=== PATIENT | male | born 1945 | race Caucasian/White ===

== ENCOUNTER 2016-03-08 10:27 | Outpatient (CLI) | payer MEDICARE | END 2016-03-08 10:28 | disposition home or self-care (01) | DX: G47.33 Obstructive sleep apnea (adult) (pediatric) (principal) | CPT/HCPCS: 99213; G0463 ==

== ENCOUNTER 2016-04-20 07:33 | Outpatient (CLI) | payer MEDICARE | END 2016-04-20 07:34 | disposition home or self-care (01) | DX: E11.65 Type 2 diabetes mellitus with hyperglycemia (principal) ==

== ENCOUNTER 2016-07-03 06:49 | Emergency (ER) | payer MEDICARE ==
--- NOTE | 2016-07-03 07:37 | XRAY Preliminary Report ---
Exam: XR Hip w/Pelvis 2-3V RT IMPRESSION: No acute bony abnormality. [facility] SITE ID: [id number]
[2016-07-03] MEDS ORDERED: DEXAMETHASONE 10 MG/ML VIAL IM STA (07:39)
--- NOTE | 2016-07-03 07:39 | XRAY Report ---
EXAM: RIGHT HIP AND PELVIS RADIOGRAPHY EXAM DATE: 07/03/2016 07:28 AM. HISTORY: Pain. COMPARISONS: None. TECHNIQUE: 1 view of the pelvis and 1 view of the hip. FINDINGS: Bones: Normal. No fracture or bone lesion. Joints: The bilateral hip, pubis symphysis, and sacroiliac joints are preserved. Soft Tissues: Left hemipelvis phlebolith. No soft tissue swelling. IMPRESSION: No acute bony abnormality. [facility] Referring Provider Line: [phone] SITE ID: [id number]
[2016-07-03] MEDS ORDERED: DEXAMETHASONE 10 MG/ML VIAL ONE ×2 (07:55→08:01)
[2016-07-03] MEDS ORDERED: CHERRY SYRUP 10 ML UDC PO ONE (07:55)
--- NOTE | 2016-07-03 08:11 | ED Physician Documentation ---
History of Present Illness - Stated complaint Stated Complaint: R HIP PAIN - Chief complaint Chief Complaint: General - Additonal information Additional information: hx from pt hx HNP several months of electric like worsening severe radicular pain from R hip to foot no abd pain no numbness no weakness no incont no saddle anesthesia has not sought care for same yet but has an appt coming up in a few more weeks Review of Systems Constitutional: denies: Fever, Chills Cardiac: denies: Chest pain / pressure Respiratory: denies: Dyspnea GI: denies: Abdominal Pain Musculoskeletal: reports: Back pain, Extremity pain Neurologic: denies: Focal weakness, Numbness Immunocompromised: denies: Immunocompromised PD PAST MEDICAL HISTORY - Past Medical History Cardiovascular: Hypertension Respiratory: Sleep apnea Endocrine/Autoimmune: Type 2 diabetes GI: GERD, Ulcers, Diverticulitis : None HEENT: None Psych: None Musculoskeletal: Chronic back pain Derm: None - Past Surgical History Past Surgical History: Yes General: Appendectomy, Bowel surgery, Gastric surgery, Colonoscopy HEENT: Tonsil/Adenoidectomy - Present Medications Home Medications: Ambulatory Orders Medication Instructions Recorded Confirmed Alprazolam 0.5 - 1 mg PO DAILY PRN 04/23/14 06/12/15 Aspirin [Aspirin EC] 81 mg PO DAILY 04/23/14 06/11/15 Hydrochlorothiazide 37.5 mg PO DAILY 04/23/14 06/12/15 Hydrocodone/Acetaminophen 1 each PO BID PRN 04/23/14 06/12/15 [Hydrocodon-Acetaminophen 5-325] Insulin Lispro [Humalog] 25 units SQ BID 04/23/14 06/11/15 Insulin NPH Human Isophane 45 units SQ DAILY 04/23/14 06/11/15 [Humulin N] Lisinopril 40 mg PO DAILY 04/23/14 06/11/15 Omeprazole 20 mg PO BID 04/23/14 06/11/15 Aspirin [Aspir-Low] 1 tab ORAL DAILY 05/22/15 06/12/15 Methocarbamol 1 tab ORAL TID PRN 05/22/15 06/11/15 Naproxen [Naprosyn] 500 mg ORAL BID PRN 05/22/15 06/11/15 predniSONE [Deltasone] 20 mg PO [id number] #21 tab 07/03/16 - Allergies Allergies/Adverse Reactions: Allergies Allergy/AdvReac Type Severity Reaction Status Date / Time morphine AdvReac Hallucinati Verified 07/03/16 07:00 ons - Social History Does the pt smoke?: No Smoking Status: Never smoker Does the pt drink ETOH?: No Does the pt have substance abuse?: No - Immunizations Immunizations: TDAP >10years/unknown - POLST Patient has POLST: No PD ED PE NORMAL - Vitals Vital signs reviewed: Yes - Cardiac Cardiac: RRR - Respiratory Respiratory: No respiratory distress, Clear bilaterally - Abdomen Abdomen: Soft, Non tender, Other (no pulsatile mass) - Derm Derm: Normal color - Extremities Extremities: No deformity - Neuro Neuro: Alert and oriented X 3, Other (foot dorsi plantar great toe ext knee ext hip flexion all 5/5, nl sensation, patellar DTR 2/4 no clonus, neg SLR though clearly describes radicular pain intermittantly) Results - Vitals Vitals: Vital Signs - 24 hr 07/03/16 06:57 Temperature 36.8 C Heart Rate 80 Respiratory 17 Rate Blood Pressure 171/73 H O2 Saturation 96 Oxygen O2 Source Room air - Rads (name of study) hip Radiology: See rad report (neg) Departure - Departure Disposition: 01 Home, Self Care Clinical Impression: Sciatic leg pain Condition: Good Instructions: ED Sciatica Follow-Up: Sheng Santamaria MD [Primary Care Provider] - Prescriptions: predniSONE [Deltasone] 20 mg PO [id number] #21 tab Comments: The steroids should relieve the nerve inflammation and ease the pain. But they will also bump up your blood sugars so please monitor carefully Continue your hydrocodone if needed.Follow up with your specialist as planned And please see you PMD about your blood pressure - it was high today
[2016-07-03 08:24] VITALS: BP 173/74
== END 2016-07-03 08:23 | disposition home or self-care (01) ==
LOC: ED 06:49
DX: M54.41 Lumbago with sciatica, right side (principal); I10 Essential (primary) hypertension; G47.30 Sleep apnea, unspecified; E11.9 Type 2 diabetes mellitus without complications; Z79.4 Long term (current) use of insulin; K21.9 Gastro-esophageal reflux disease without esophagitis; Z87.11 Personal history of peptic ulcer disease; Z79.82 Long term (current) use of aspirin
CPT/HCPCS: 73502; 96372; 99283; A9270

== ENCOUNTER 2016-07-26 08:39 | Outpatient (CLI) | payer MEDICARE ==
--- NOTE | 2016-07-26 11:19 | MRI Report ---
EXAM: MRI LUMBAR SPINE WITHOUT CONTRAST EXAM DATE: 07/26/2016 09:14 AM. CLINICAL HISTORY: HNP (herniated nucleus pulposus) with right L4 radiculopathy. Right-sided sciatic p ain for 3 months. COMPARISON: MRI of the lumbar spine 10/23/2014, 11/08/2011. TECHNIQUE: Multiplanar, multisequence T1-weighted and fluid-sensitive sequences of the lumbar spine f rom T12 to S1 without contrast. Other: None. FINDINGS: Spinal Cord: The conus terminates at L1-L2. The conus medullaris and cauda equina are unremarkable. Alignment: Normal. No scoliosis or spondylolisthesis. Bone Marrow: Five crc-[id number] lumbar vertebral bodies are assumed. No gross fractures or bone les ions. No bone marrow edema. Disk Levels/Facets: T12-L1: Unremarkable on sagittal series. L1-L2: Unremarkable on sagittal series. L2-L3: Unremarkable. T2 hypointense disk signal is noted. L3-L4: Unremarkable. T2 hypointense disk signal is noted. L4-L5: Moderate right-sided and mild left-sided degenerative facet changes seen. Thickening of the li gamentum flavum is noted greater on the right. Anterior protrusion of right ligamentum flavum cyst is seen measuring approximately 8 x 6 x 8 mm. This fills the proximal right L5 lateral recess. Anterior displacement and flattening of the proximal descending right L5 nerve root is seen with lateral rece ss stenosis. Effacement of the right lateral thecal sac is seen without canal stenosis. Minimal loss of disk space height is seen. T2 hypointense disk signal is seen. Minimal dorsal and lateral disk bul ge is seen without protrusion. L5-S1: Moderate loss of disk space height is seen which has progressed. Endplate irregularity with Mo dic type II endplate changes seen. Mild circumferential disk bulge is seen without focal protrusion. Mild effacement of exited left L5 nerve root lateral to the foramen is seen without foraminal stenosi s. This is unchanged from the most recent prior study. Musculature: Normal. No edema or fatty atrophy. Other: The partially visualized retroperitoneum is unremarkable. IMPRESSION: 1. L4-L5: Mild to moderate degenerative facet with mild degenerative disk change. Development of ante riorly protruded 8 x 6 x 8 mm right ligamentum flavum cyst is seen. Associated marked right lateral r ecess stenosis is seen with mass effect on proximal descending right L5 nerve root. 2. L5-S1: Mild spondylosis. Effacement of exited left L5 nerve root is seen. No stenosis. This is unc hanged. Comment: The following findings are so common in adults without low back pain that while we report th eir presence, they must be interpreted with caution and in the context of the clinical situation. (Re ryanne Mann et al, Spine 2001) Prevalence of findings in patients without low back pain: Disk degeneration (any evidence): 92% Disk desiccation/T2 signal loss: 83% Disk height loss: 56% Disk bulge: 64% Disk protrusion: 32% Annular tear/high intensity zone: 38% [facility] Referring Provider Line: [phone] SITE ID: [id number]
== END 2016-07-26 08:40 | disposition home or self-care (01) ==
LOC: DI 08:39
PROVIDERS: ATTEND Physical Medicine & Rehabilitation
DX: M47.896 Other spondylosis, lumbar region (principal); M53.86 Other specified dorsopathies, lumbar region; M51.36 Other intervertebral disc degeneration, lumbar region; M47.897 Other spondylosis, lumbosacral region
CPT/HCPCS: 72148

== ENCOUNTER 2016-11-02 07:30 | Outpatient (CLI) | payer MEDICARE ==
[2016-11-02 07:58] LABS: CREATININE 1.7 mg/dL (0.6-1.2)
[2016-11-02 08:08] LABS: HEMOGLOBIN A1C 0.73 g/dL
== END 2016-11-02 07:31 | disposition home or self-care (01) ==
LOC: LAB 07:30
PROVIDERS: ATTEND Family Medicine
DX: E11.65 Type 2 diabetes mellitus with hyperglycemia (principal)
CPT/HCPCS: 36415; 82565; 83036

== ENCOUNTER 2017-03-11 07:28 | Outpatient (CLI) | payer MEDICARE ==
[2017-03-11 08:08] LABS: CHOL/HDL RATIO 5.8 (<5.0); CHOLESTEROL 202 mg/dL; CREATININE 1.6 mg/dL (0.6-1.2); GFR - MDRD 43 (>89); HDL CHOLESTEROL 35 mg/dL; LDL CHOLESTEROL,CALCULATED 145 mg/dL; LDL/HDL RATIO 4.1 (<3.6); VLDL CHOLESTEROL 22 mg/dL
[2017-03-11 08:13] LABS: HB2 TOTAL 14.1 g/dL; HEMOGLOBIN A1C 0.78 g/dL; HEMOGLOBIN A1C % 7.2 % (4.6-6.2)
== END 2017-03-11 07:29 | disposition home or self-care (01) ==
LOC: LAB 07:28
PROVIDERS: ATTEND Family Medicine
DX: E11.65 Type 2 diabetes mellitus with hyperglycemia (principal)
CPT/HCPCS: 36415; 80061; 82043; 82565; 83036; 83721; 84132

== ENCOUNTER 2017-03-21 13:20 | Outpatient (CLI) | payer MEDICARE | END 2017-03-21 13:21 | disposition home or self-care (01) | LOC: SC 13:20 | PROVIDERS: ATTEND Nurse Practitioner Family | DX: G47.33 Obstructive sleep apnea (adult) (pediatric) (principal) | CPT/HCPCS: 99214; G0463; 99212 ==

== ENCOUNTER 2017-04-08 07:16 | Outpatient (CLI) | payer MEDICARE | END 2017-04-08 07:17 | disposition home or self-care (01) | LOC: LAB 07:16 | PROVIDERS: ATTEND Family Medicine | DX: M47.817 Spondylosis without myelopathy or radiculopathy, lumbosacral region (principal) | CPT/HCPCS: 80307; 81599; G0480; 80321; 80346; 80354; 80362 ==

== ENCOUNTER 2017-05-10 07:43 | Outpatient (CLI) | payer MEDICARE ==
--- NOTE | 2017-05-10 14:50 | MRI Report ---
EXAM: MRI LUMBAR SPINE WITHOUT CONTRAST EXAM DATE: 05/10/2017 08:18 AM. CLINICAL HISTORY: Right-sided lumbar radiculopathy COMPARISON: MRI lumbar spine 07/26/2016 TECHNIQUE: Multiplanar, multisequence T1-weighted and fluid-sensitive sequences of the lumbar spine f rom T12 to S1 without contrast. Other: None. FINDINGS: Spinal Cord: The conus terminates at L1-L2. Fatty filum terminale is again noted, no evidence of teth ering. The conus medullaris and cauda equina are otherwise unremarkable. Alignment: No scoliosis or spondylolisthesis. Bone Marrow: Five daw-nmn-cmrvnue lumbar vertebral bodies are assumed. Mild diffuse heterogeneity of the bone marrow, may represent fatty replacement of the marrow. No gross fractures or bone lesions. N o bone marrow edema. Disk Levels/Facets: T12-L1: Unremarkable. L1-L2: Unremarkable. L2-L3: Mild disk height loss and desiccation. No significant central canal or foraminal narrowing. No interval progression. L3-L4: Mild disk height loss and desiccation. Mild diffuse disk bulge and mild bilateral facet arthro annie. No significant central canal or foraminal narrowing. No interval progression. L4-L5: Mild disk height loss and desiccation. Moderate diffuse disk bulge. Redemonstration 9 x 7 mm c yst arising from the right facet joint, likely representing a synovial cyst. Moderate right and mild left facet arthropathy. Mild central canal narrowing. Mild right foraminal narrowing. No left foramin al narrowing. Redemonstration moderate to severe right lateral recess narrowing with mass effect on t raversing right L5 nerve, overall similar to prior study. L5-S1: Moderate to severe disk height loss and desiccation. Mild diffuse disk bulge. Mild to moderate bilateral facet arthropathy. No significant central canal narrowing. Moderate left and mild right fo raminal narrowing. No interval progression. Musculature: Normal. No edema or fatty atrophy. Other: The partially visualized retroperitoneum is unremarkable. IMPRESSION: 1. Compared to the prior MRI from 07/26/2016, overall no significant interval change in mild to moder ate multilevel degenerative spondylosis, as detailed. No evidence of acute fracture or malalignment. No cord signal abnormality. 2. Fatty filum terminale is again noted, no evidence of tethering. 3. L4-L5 level demonstrates a moderate diffuse disk bulge. Redemonstration 9 x 7 mm cyst arising from the right facet joint, likely representing a synovial cyst. Moderate right and mild left facet arthr opathy. Overall, this results in mild central canal narrowing, mild right foraminal narrowing, no lef t foraminal narrowing. In addition, redemonstration moderate to severe right lateral recess narrowing with mass effect on traversing right L5 nerve, overall similar to prior study. 4. L5-S1 level demonstrates no significant central canal narrowing. Moderate left and mild right fora camelia narrowing. No interval progression. 5. No significant central canal or foraminal narrowing at remaining lumbar levels. Comment: The following findings are so common in adults without low back pain that while we report th eir presence, they must be interpreted with caution and in the context of the clinical situation. (Re ryanne Mann et al, Spine 2001) Prevalence of findings in patients without low back pain: Disk degeneration (any evidence): 92% Disk desiccation/T2 signal loss: 83% Disk height loss: 56% Disk bulge: 64% Disk protrusion: 32% Annular tear/high intensity zone: 38% [facility] Referring Provider Line: [phone] SITE ID: [id number]
== END 2017-05-10 07:44 | disposition home or self-care (01) ==
LOC: DI 07:43
PROVIDERS: ATTEND Family Medicine
DX: M51.36 Other intervertebral disc degeneration, lumbar region (principal); M47.896 Other spondylosis, lumbar region; M53.86 Other specified dorsopathies, lumbar region
CPT/HCPCS: 72148

== ENCOUNTER 2017-08-08 07:58 | Outpatient (CLI) | END 2017-08-08 07:59 | disposition home or self-care (01) ==

== ENCOUNTER 2017-08-31 07:25 | Outpatient (CLI) | payer MEDICARE ==
[2017-08-31 08:45] LABS: CREATININE 2.1 mg/dL (0.6-1.2)
== END 2017-08-31 07:26 | disposition home or self-care (01) ==
LOC: LAB 07:25
PROVIDERS: ATTEND Family Medicine
DX: I15.0 Renovascular hypertension (principal)
CPT/HCPCS: 36415; 82565; 84132

== ENCOUNTER 2017-09-14 07:24 | Outpatient (CLI) | payer MEDICARE ==
[2017-09-14 07:51] LABS: CREATININE 2.1 mg/dL (0.6-1.2)
== END 2017-09-14 07:25 | disposition home or self-care (01) ==
LOC: LAB 07:24
PROVIDERS: ATTEND Family Medicine
DX: I15.0 Renovascular hypertension (principal)
CPT/HCPCS: 36415; 82565; 84132

== ENCOUNTER 2017-11-02 07:30 | Outpatient (CLI) | payer MEDICARE ==
[2017-11-02 08:04] LABS: CREATININE 2.6 mg/dL (0.6-1.2)
[2017-11-02 08:13] LABS: HB2 TOTAL 12.1 g/dL; HEMOGLOBIN A1C 0.68 g/dL; HEMOGLOBIN A1C % 7.3 % (4.6-6.2)
== END 2017-11-02 07:31 | disposition home or self-care (01) ==
LOC: LAB 07:30
PROVIDERS: ATTEND Family Medicine
DX: E11.9 Type 2 diabetes mellitus without complications (principal)
CPT/HCPCS: 36415; 82565; 83036

== ENCOUNTER 2017-11-28 14:31 | Outpatient (CLI) | payer MEDICARE ==
[2017-11-28 14:49] LABS: CREATININE 1.7 mg/dL (0.6-1.2)
== END 2017-11-28 14:32 | disposition home or self-care (01) ==
LOC: LAB 14:31
PROVIDERS: ATTEND Family Medicine
DX: E11.9 Type 2 diabetes mellitus without complications (principal)
CPT/HCPCS: 36415; 82565; 84132

== ENCOUNTER 2018-02-24 07:28 | Outpatient (CLI) | payer MEDICARE ==
[2018-02-24 08:12] LABS: CHOL/HDL RATIO 5.8 (<5.0); CHOLESTEROL 196 mg/dL; CREATININE 1.7 mg/dL (0.6-1.2); GFR - MDRD 40 (>89); HDL CHOLESTEROL 34 mg/dL; LDL CHOLESTEROL,CALCULATED 139 mg/dL; LDL/HDL RATIO 4.1 (<3.6); VLDL CHOLESTEROL 23 mg/dL
[2018-02-24 08:16] LABS: HB2 TOTAL 14.4 g/dL; HEMOGLOBIN A1C 0.89 g/dL; HEMOGLOBIN A1C % 7.8 % (4.6-6.2)
[2018-02-24 08:41] LABS: MUDS CUTOFF CONCENTRATIONS CUTOFF CONC BELOW:
[2018-02-24 09:09] LABS: BENZODIAZEPINES SCREEN, URINE POSITIVE (NEGATIVE)
[2018-02-24 09:10] LABS: AMPHETAMINE SCREEN,URINE NEGATIVE (NEGATIVE); COCAINE SCREEN URINE NEGATIVE (NEGATIVE); METHADONE SCREEN, URINE NEGATIVE (NEGATIVE); METHAMPHETAMINES SCREEN, URINE NEGATIVE (NEGATIVE); OPIATE SCREEN, URINE NEGATIVE (NEGATIVE); OXYCODONE SCREEN, URINE NEGATIVE (NEGATIVE); PROPOXYPHENE SCREEN, URINE NEGATIVE (NEGATIVE); TRICYCLIC ANTIDEPRESSANT,URINE NEGATIVE (NEGATIVE)
== END 2018-02-24 07:29 | disposition home or self-care (01) ==
LOC: LAB 07:28
PROVIDERS: ATTEND Family Medicine
DX: E11.9 Type 2 diabetes mellitus without complications (principal)
CPT/HCPCS: 36415; 80061; 80306; 82043; 82565; 83036; 83721; 84132

== ENCOUNTER 2018-05-10 11:10 | Outpatient (CLI) | payer MEDICARE | END 2018-05-10 11:11 | disposition home or self-care (01) | LOC: SC 11:10 | PROVIDERS: ATTEND Nurse Practitioner Family | DX: G47.33 Obstructive sleep apnea (adult) (pediatric) (principal); R03.0 Elevated blood-pressure reading, without diagnosis of hypertension | CPT/HCPCS: 99214; G0463; 99212 ==

== ENCOUNTER 2018-08-11 07:25 | Outpatient (CLI) | payer MEDICARE ==
[2018-08-11 07:47] LABS: MUDS CUTOFF CONCENTRATIONS CUTOFF CONC BELOW:
[2018-08-11 08:07] LABS: CREATININE 1.7 mg/dL (0.6-1.2)
[2018-08-11 08:12] LABS: AMPHETAMINE SCREEN,URINE NEGATIVE (NEGATIVE); BENZODIAZEPINES SCREEN, URINE POSITIVE (NEGATIVE); COCAINE SCREEN URINE NEGATIVE (NEGATIVE); METHADONE SCREEN, URINE NEGATIVE (NEGATIVE); METHAMPHETAMINES SCREEN, URINE NEGATIVE (NEGATIVE); OPIATE SCREEN, URINE NEGATIVE (NEGATIVE); OXYCODONE SCREEN, URINE NEGATIVE (NEGATIVE); PROPOXYPHENE SCREEN, URINE NEGATIVE (NEGATIVE); TRICYCLIC ANTIDEPRESSANT,URINE NEGATIVE (NEGATIVE)
[2018-08-11 08:32] LABS: HB2 TOTAL 13.7 g/dL; HEMOGLOBIN A1C 0.71 g/dL; HEMOGLOBIN A1C % 6.9 % (4.6-6.2)
== END 2018-08-11 07:26 | disposition home or self-care (01) ==
LOC: LAB 07:25
PROVIDERS: ATTEND Family Medicine
DX: E11.9 Type 2 diabetes mellitus without complications (principal); Z51.81 Encounter for therapeutic drug level monitoring; Z79.4 Long term (current) use of insulin
CPT/HCPCS: 36415; 80306; 82043; 82565; 83036; 84132; 84295

== ENCOUNTER 2018-09-22 15:15 | Emergency (ER) | payer MEDICARE ==
[2018-09-22 16:09] LABS: BASOPHILS # (AUTO) 0.1 10^3/uL (0.0-0.1); BASOPHILS % (AUTO) 0.9 %; EOSINOPHILS # (AUTO) 0.5 10^3/uL (0.0-0.7); EOSINOPHILS % (AUTO) 7.7 %; HGB - HEMOGLOBIN 12.3 g/dL (14.0-18.0); LYMPHOCYTES # (AUTO) 1.1 10^3/uL (1.5-3.5); LYMPHOCYTES % (AUTO) 19.1 %; MEAN CORPUSCULAR HEMOGLOBIN 30.4 pg (27.0-31.0); MEAN CORPUSCULAR HGB CONC 32.9 g/dL (32.0-36.0); MEAN CORPUSCULAR VOLUME 92.6 fL (80.0-94.0); MONOCYTES # (AUTO) 0.7 10^3/uL (0.0-1.0); MONOCYTES % (AUTO) 11.8 %; NEUTROPHILS # (AUTO) 3.5 10^3/uL (1.5-6.6); NEUTROPHILS % (AUTO) 59.8 %; PLT - PLATELET COUNT 322 10^3/uL (130-450); RED BLOOD COUNT 4.04 10^6/uL (4.70-6.10); RED CELL DISTRIBUTION WIDTH 13.2 % (12.0-15.0); WHITE BLOOD COUNT 5.9 x10^3/uL (4.8-10.8)
[2018-09-22 16:09] LABS: BILIRUBIN,URINE NEGATIVE (NEGATIVE); KETONES,URINE (UA) NEGATIVE (NEGATIVE); LEUKOCYTE ESTERASE, URINE SMALL (NEGATIVE); NITRITE,URINE POSITIVE (NEGATIVE); OCCULT BLOOD,URINE NEGATIVE (NEGATIVE)
[2018-09-22 16:12] LABS: CLARITY,URINE HAZY (CLEAR)
[2018-09-22 16:14] LABS: BACTERIA,URINE Rare /HPF (None Seen); RBC,URINE 0-5 /HPF (0-5); SQUAMOUS EPITHELIAL CELL,UR RARE Squamous (<= Few)
[2018-09-22 16:24] LABS: ALBUMIN/GLOBULIN RATIO 1.3 (1.0-2.2); BILIRUBIN,TOTAL 0.7 mg/dL (0.2-1.0); CALCIUM 9.3 mg/dL (8.5-10.3); CREATININE 1.7 mg/dL (0.6-1.2)
--- NOTE | 2018-09-22 19:26 | ED Physician Documentation ---
PD HPI ABD PAIN - Stated complaint Stated Complaint: MALE /TAILBONE INJURY - Chief complaint Chief Complaint: Abd Pain - History obtained from History obtained from: Patient - History of Present Illness Timing - onset: How many weeks ago Timing - duration: Weeks (2.5) Timing - details: Gradual onset Associated symptoms: Nausea. No: Fever, Vomiting, Diarrhea, Constipation Similar symptoms before: Has not had sx before Recently seen: Not recently seen - Additional information Additional information: This is a 73-year-old man who presents with his complaints that 2-1/2 weeks ago he developed some urgency and was only dribbling a little bit of urine had some pain when he urinated. He tried to push fluids never saw any blood but he continued to have some frequency and developed some minor incontinence and things are just getting worse. It occurred to him that he might have a urinary tract infection. He denies any fever. No abdominal pain. He does have chronic back pain but nothing out of the ordinary. Had some mild nausea but no vomiting or diarrhea. Denies any history of prostate disorder. In addition to the symptoms he fell 2 days ago coming down a ladder he missed the last step and fell backwards and has developed a lot of "coccyx" pain. 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 Review of Systems Constitutional: denies: Fever Cardiac: denies: Chest pain / pressure Respiratory: denies: Dyspnea, Cough GI: reports: Nausea. denies: Abdominal Pain, Vomiting, Constipation, Diarrhea : reports: Dysuria, Frequency, Incontinent. denies: Hematuria Musculoskeletal: reports: Other (Pain in the tailbone) Neurologic: denies: Generalized weakness, Focal weakness PD PAST MEDICAL HISTORY - Past Medical History Cardiovascular: Hypertension Respiratory: Sleep apnea Endocrine/Autoimmune: Type 2 diabetes GI: GERD, Ulcers, Diverticulitis : None HEENT: None Psych: None Musculoskeletal: Chronic back pain Derm: None - Past Surgical History Past Surgical History: Yes General: Appendectomy, Bowel surgery, Gastric surgery, Colonoscopy HEENT: Tonsil/Adenoidectomy - Present Medications Home Medications: Ambulatory Orders Medication Instructions Recorded Confirmed Aspirin [Aspirin EC] 81 mg PO DAILY 04/23/14 07/03/16 Hydrocodone/Acetaminophen 1 each PO BID PRN 04/23/14 07/03/16 [Hydrocodon-Acetaminophen 5-325] Insulin Lispro [Humalog] 25 units SQ BID 04/23/14 07/03/16 Insulin NPH Human Isophane 45 units SQ DAILY 04/23/14 07/03/16 [Humulin N] RX: ALPRAZolam [Alprazolam] 0.5 - 1 mg PO DAILY PRN 04/23/14 07/03/16 RX: Hydrochlorothiazide 37.5 mg PO DAILY 04/23/14 07/03/16 RX: Lisinopril 40 mg PO DAILY 04/23/14 07/03/16 RX: Omeprazole 20 mg PO BID 04/23/14 07/03/16 RX: Aspirin [Aspir-Low] 1 tab ORAL DAILY 05/22/15 07/03/16 RX: Methocarbamol 1 tab ORAL TID PRN 05/22/15 07/03/16 RX: Naproxen [Naprosyn] 500 mg ORAL BID PRN 05/22/15 07/03/16 RX: predniSONE [Deltasone] 20 mg PO [id number] #21 tab 07/03/16 Ciprofloxacin HCl [Cipro] 500 mg PO BID #20 tablet 09/22/18 - Allergies Allergies/Adverse Reactions: Allergies Allergy/AdvReac Type Severity Reaction Status Date / Time morphine AdvReac Hallucinati Verified 09/22/18 15:29 ons - Social History Does the pt smoke?: No Smoking Status: Never smoker Does the pt drink ETOH?: No Does the pt have substance abuse?: No - Immunizations Immunizations: TDAP >10years/unknown - POLST Patient has POLST: No PD ED PE NORMAL - Vitals Vital signs reviewed: Yes - General General: Alert and oriented X 3, No acute distress, Well developed/nourished - HEENT HEENT: Atraumatic, PERRL, EOMI, Moist mucous membranes - Neck Neck: Supple, no meningeal sign - Cardiac Cardiac: RRR, No murmur - Respiratory Respiratory: No respiratory distress, Clear bilaterally - Abdomen Abdomen: Normal bowel sounds, Soft, Non tender, Non distended, No organomegaly - Back Back: No CVA TTP, Other (There is pain to palpation over the coccyx. No evident bruising. No sacral pain.) - Derm Derm: Normal color, Warm and dry, No rash Results - Vitals Vitals: Oxygen O2 Source CPAP - Labs Labs: Microbiology 09/22/18 15:37 Urine Culture - Final Urine,Clean Catch >100,000 COLONIES/ML Polymicrobial growth including potential pathogens. This is suggestive of skin or other contamination. Laboratory Tests 09/22/18 09/22/18 09/22/18 15:37 16:04 16:04 WBC 5.9 RBC 4.04 L Hgb 12.3 L Hct 37.4 L MCV 92.6 MCH 30.4 MCHC 32.9 RDW 13.2 Plt Count 322 MPV 9.0 Neut # (Auto) 3.5 Lymph # (Auto) 1.1 L [place] # (Auto) 0.7 Eos # (Auto) 0.5 Baso # (Auto) 0.1 Absolute Nucleated RBC 0.00 Nucleated RBC % 0.0 Sodium 137 Potassium 3.9 Chloride 98 L Carbon Dioxide 24 Anion Gap 15.0 H BUN 41 H Creatinine 1.7 H Estimated GFR (MDRD) 40 L Glucose 251 H Calcium 9.3 Total Bilirubin 0.7 AST 23 ALT 27 Alkaline Phosphatase 61 Total Protein 7.0 Albumin 4.0 Globulin 3.0 Albumin/Globulin Ratio 1.3 Lipase 26 Urine Color ORANGE Urine Clarity HAZY Urine pH 5.0 Ur Specific [place] 1.020 Urine Protein Urine Glucose (UA) Urine Ketones NEGATIVE Urine Occult Blood NEGATIVE Urine Nitrite POSITIVE H Urine Bilirubin NEGATIVE Urine Urobilinogen Ur Leukocyte Esterase SMALL H Urine RBC 0-5 Urine WBC >25 H Ur Squamous Epith Cells RARE Squamous Urine Bacteria Rare Ur Microscopic Review INDICATED Urine Culture Comments INDICATED PD MEDICAL DECISION MAKING - ED course Complexity details: reviewed results, d/w patient, d/w family ED course: Patient does have a urinary tract infection is placed on Cipro. He is warned about the signs and symptoms of tendinitis and told to follow-up immediately if he develops any other symptoms. In addition he likely has fractured his coccyx. I did not feel that any imaging was warranted at this time. Recommended that he sit on a foam doughnut. Departure - Departure Disposition: 01 Home, Self Care Clinical Impression: UTI (urinary tract infection) Qualifiers: Urinary tract infection type: site unspecified Hematuria presence: without hematuria Qualified Code(s): N39.0 - Urinary tract infection, site not specified Condition: Good Instructions: ED UTI Cystitis Male Follow-Up: Sheng Santamaria MD [Primary Care Provider] - Prescriptions: Ciprofloxacin HCl [Cipro] 500 mg PO BID #20 tablet Comments: Make sure that you are drinking lots of water. Take the Cipro twice a day as prescribed. Follow-up immediately if you develop any signs or symptoms of tendinitis as discussed. Follow-up with your primary care provider after you finish the Cipro to make sure the urine is retested and the infection has been cleared. Return if you develop back pain, fever, vomiting or worsening symptoms. Discharge Date/Time: 09/22/18 20:20
[2018-09-22] MEDS ORDERED: CIPROFLOXACIN 250 MG TABLET PO STA (19:52)
[2018-09-22 20:06] VITALS: BP 140/89
== END 2018-09-22 20:20 | disposition home or self-care (01) ==
LOC: ED 15:15
DX: N39.0 Urinary tract infection, site not specified (principal); S39.92XA Unspecified injury of lower back, initial encounter; W11.XXXA Fall on and from ladder, initial encounter; I10 Essential (primary) hypertension; E11.9 Type 2 diabetes mellitus without complications; Z79.4 Long term (current) use of insulin; Z79.82 Long term (current) use of aspirin
CPT/HCPCS: 36415; 80053; 81001; 83690; 85025; 87086; 99283; 99284; A9270; 81003

== ENCOUNTER 2018-12-05 07:39 | Outpatient (CLI) | payer MEDICARE ==
[2018-12-05 08:10] LABS: MUDS CUTOFF CONCENTRATIONS CUTOFF CONC BELOW:
[2018-12-05 08:11] LABS: AMPHETAMINE SCREEN,URINE NEGATIVE (NEGATIVE); BENZODIAZEPINES SCREEN, URINE POSITIVE (NEGATIVE); COCAINE SCREEN URINE NEGATIVE (NEGATIVE); METHADONE SCREEN, URINE NEGATIVE (NEGATIVE); METHAMPHETAMINES SCREEN, URINE NEGATIVE (NEGATIVE); OPIATE SCREEN, URINE POSITIVE (NEGATIVE); OXYCODONE SCREEN, URINE NEGATIVE (NEGATIVE); PROPOXYPHENE SCREEN, URINE NEGATIVE (NEGATIVE); TRICYCLIC ANTIDEPRESSANT,URINE NEGATIVE (NEGATIVE)
[2018-12-05 08:12] LABS: HEMOGLOBIN A1C 0.83 g/dL; HEMOGLOBIN A1C % 7.6 % (4.6-6.2)
[2018-12-05 08:20] LABS: CHOLESTEROL 194 mg/dL; CREATININE 1.9 mg/dL (0.6-1.2); GFR - MDRD 35 (>89); HDL CHOLESTEROL 39 mg/dL; LDL CHOLESTEROL,CALCULATED 133 mg/dL; LDL/HDL RATIO 3.4 (<3.6); VLDL CHOLESTEROL 22 mg/dL
== END 2018-12-05 07:40 | disposition home or self-care (01) ==
LOC: LAB 07:39
PROVIDERS: ATTEND Family Medicine
DX: E11.9 Type 2 diabetes mellitus without complications (principal); N40.0 Benign prostatic hyperplasia without lower urinary tract symptoms; M47.817 Spondylosis without myelopathy or radiculopathy, lumbosacral region
CPT/HCPCS: 36415; 80061; 80306; 82043; 82565; 83036; 83721; 84132; 84153

== ENCOUNTER 2019-01-19 07:42 | Outpatient (CLI) | payer MEDICARE ==
[2019-01-19 08:08] LABS: BILIRUBIN,URINE NEGATIVE (NEGATIVE); GLUCOSE, URINE (UA) NEGATIVE (NEGATIVE); KETONES,URINE (UA) NEGATIVE (NEGATIVE); LEUKOCYTE ESTERASE, URINE TRACE (NEGATIVE); NITRITE,URINE NEGATIVE (NEGATIVE); OCCULT BLOOD,URINE NEGATIVE (NEGATIVE); PH,URINE 5.5 PH (5.0-7.5); PROTEIN,URINE NEGATIVE (NEGATIVE); UROBILINOGEN,URINE 0.2 (NORMAL) E.U./dL (NORMAL)
[2019-01-19 08:12] LABS: CLARITY,URINE CLEAR (CLEAR)
[2019-01-19 08:22] LABS: BACTERIA,URINE None Seen /HPF (None Seen); RBC,URINE None Seen /HPF (0-5); SQUAMOUS EPITHELIAL CELL,UR NONE SEEN (<= Few)
== END 2019-01-19 07:43 | disposition home or self-care (01) ==
LOC: LAB 07:42
PROVIDERS: ATTEND Urology
DX: R97.20 Elevated prostate specific antigen [PSA] (principal)
CPT/HCPCS: 81001; 87086

== ENCOUNTER 2019-07-02 07:29 | Outpatient (CLI) | payer MEDICARE ==
[2019-07-02 08:18] LABS: HEMOGLOBIN A1C 0.85 g/dL; HEMOGLOBIN A1C % 7.7 % (4.6-6.2)
== END 2019-07-02 07:30 | disposition home or self-care (01) ==
LOC: LAB 07:29
PROVIDERS: ATTEND Family Medicine
DX: E11.9 Type 2 diabetes mellitus without complications (principal)
CPT/HCPCS: 36415; 83036

== ENCOUNTER 2019-09-04 10:32 | Outpatient (CLI) | payer MEDICARE ==
--- NOTE | 2019-09-04 11:13 | SLEEP CARE CONSULTATION ---
Information from patient questionnaire entered by Celia Martinez. I have reviewed and concur with the information entered by Celia Martinez. This document represents the service I personally performed and the decisions made by me, Yisel Gomez MD, [facility]. History of Present Illness Service Date and Time: 09/04/2019 1032 Previous diagnosis: Mild, Obstructive Sleep Apnea-Hypopnea Syndrome AHI: 12.9 (in 2014) Reason for follow up: annual (last seen 2019) Equipment type: CPAP Equipment obtained from: [employer] Mask style: Nasal Prior sleep studies: Yes Year and Where: 2015 - [facility] Sleep Type of Sleep Study: Home sleep study ( [facility]) HPI additional information: HPI: Mr. Zuñiga was returns today to an annual follow up on the nasal CPAP therapy. He was diagnosed to have mild obstructive sleep apnea-hypopnea syndrome. The patient wears a [employer] DreamWear nasal cushion mask. He reports using the device nightly and all through the night. The compliance report shows usage in 180 nights out of the past 180 nights, averaging 5.7 hours a night. He takes alprazolam every night. The > 4 hour compliance rate for the past 30 days is 100%. He complained of no particular problem with the device such as soreness on the face, dry nose, epistaxis, nasal congestion or headache. He thinks that the pressure of 8 15 cmH2O is comfortable. On the CPAP therapy he notices improvement in his sleep quality, and that he wakes up feeling fresher in the morning and more awake/alert during the day. His notices no snore at all. The average residual AHI is 3.9; and average time in large leak per day is 1 minute. The 90th percentile pressure is 9.2 cmH2O. Subjective Initial [place] Sleepiness Scale score: 5 (in 2014) Current [place] Sleepiness Scale score: 0 Allergies and Home Medications Drug allergies reviewed: Yes Home medication list reviewed: Yes Physical Exam Height: 5 ft 9 in Weight: 218 lb Weight change since last visit: - 4 lbs Body Mass Index: 32.1 BMI Classification: Obese Impression and Plan IMPRESSION: 1. Obstructive Sleep Apnea-Hypopnea Syndrome, mild (AHI was 12.9) with the patient continuing to do well on nasal CPAP therapy. He has excellent compliance and significant clinical improvement. The current pressure appears effective and comfortable. His mask fits well. Overall, he is very satisfied with treatment and plans to continue with it long-term. No adjustment is ne cessary today. Because the CPAP is now older than the useful life of 5 years, I will order the patient a new one and make it an autoCPAP set between 8 and 15 cmH2O. PLAN: 1. Prescription made for an autoCPAP, heated humidifier, and related supplies. 2. Try to lose weight 3. Return for follow up after one month on the new machine. Visit Type: In Office Time Spent with Patient (minutes): 15 Provider Statement: I spent 100% of the Face to Face Visit with the patient with greater than 50% spent counseling the patient and coordination of care.
== END 2019-09-04 10:33 | disposition home or self-care (01) ==
LOC: SC 10:32
PROVIDERS: ATTEND Internal Medicine Pulmonary Disease
DX: G47.33 Obstructive sleep apnea (adult) (pediatric) (principal); E66.9 Obesity, unspecified; Z68.32 Body mass index [BMI] 32.0-32.9, adult
CPT/HCPCS: 99213; G0463; 99212

== ENCOUNTER 2020-02-07 19:32 | Observation (INO) | payer MEDICARE ==
--- NOTE | 2020-02-07 19:46 | ED Physician Documentation ---
PD HPI HEADACHE - Stated complaint Stated Complaint: ALONZO,NAUSEA - Chief complaint Chief Complaint: Neuro - History obtained from History obtained from: Patient PD PAST MEDICAL HISTORY - Past Medical History Cardiovascular: Hypertension Respiratory: Sleep apnea Endocrine/Autoimmune: Type 2 diabetes GI: GERD, Ulcers, Diverticulitis : None HEENT: None Psych: None Musculoskeletal: Chronic back pain Derm: None - Past Surgical History Past Surgical History: Yes General: Appendectomy, Bowel surgery, Gastric surgery, Colonoscopy HEENT: Tonsil/Adenoidectomy - Present Medications Home Medications: Ambulatory Orders Medication Instructions Recorded Confirmed ALPRAZolam [Alprazolam] 0.5 - 1 mg PO DAILY PRN 04/23/14 07/03/16 Aspirin [Aspirin EC] 81 mg PO DAILY 04/23/14 07/03/16 Hydrochlorothiazide 37.5 mg PO DAILY 04/23/14 07/03/16 Hydrocodone/Acetaminophen 1 each PO BID PRN 04/23/14 07/03/16 [Hydrocodon-Acetaminophen 5-325] Insulin Lispro [Humalog] 25 units SQ BID 04/23/14 07/03/16 Insulin NPH Human Isophane 45 units SQ DAILY 04/23/14 07/03/16 [Humulin N] Omeprazole 20 mg PO BID 04/23/14 07/03/16 lisinopriL [Lisinopril] 40 mg PO DAILY 04/23/14 07/03/16 Aspirin [Aspir-Low] 1 tab ORAL DAILY 05/22/15 07/03/16 Naproxen [Naprosyn] 500 mg ORAL BID PRN 05/22/15 07/03/16 methocarbamoL [Methocarbamol] 1 tab ORAL TID PRN 05/22/15 07/03/16 predniSONE [Deltasone] 20 mg PO [id number] #21 tab 07/03/16 Ciprofloxacin HCl [Cipro] 500 mg PO BID #20 tablet 09/22/18 - Allergies Allergies/Adverse Reactions: Allergies Allergy/AdvReac Type Severity Reaction Status Date / Time morphine AdvReac Hallucinati Verified 02/07/20 19:37 ons - Social History Does the pt smoke?: No Smoking Status: Never smoker Does the pt drink ETOH?: No Does the pt have substance abuse?: No - Immunizations Immunizations: TDAP >10years/unknown - POLST Patient has POLST: No Results - Vitals Vitals: Vital Signs - 24 hr 02/07/20 19:37 Temperature 36.5 C Heart Rate 90 Respiratory 16 Rate Blood Pressure 200/100 H O2 Saturation 96 Oxygen O2 Source Room air
[2020-02-07 20:08] LABS: BASOPHILS # (AUTO) 0.1 10^3/uL (0.0-0.1); BASOPHILS % (AUTO) 0.9 %; EOSINOPHILS # (AUTO) 0.2 10^3/uL (0.0-0.7); EOSINOPHILS % (AUTO) 3.4 %; HGB - HEMOGLOBIN 13.4 g/dL (14.0-18.0); LYMPHOCYTES # (AUTO) 1.1 10^3/uL (1.5-3.5); LYMPHOCYTES % (AUTO) 17.1 %; MEAN CORPUSCULAR HEMOGLOBIN 30.3 pg (27.0-31.0); MEAN CORPUSCULAR VOLUME 91.9 fL (80.0-94.0); MONOCYTES # (AUTO) 0.7 10^3/uL (0.0-1.0); MONOCYTES % (AUTO) 10.5 %; NEUTROPHILS # (AUTO) 4.4 10^3/uL (1.5-6.6); NEUTROPHILS % (AUTO) 67.5 %; PLT - PLATELET COUNT 318 10^3/uL (130-450); RED BLOOD COUNT 4.42 10^6/uL (4.70-6.10); RED CELL DISTRIBUTION WIDTH 12.4 % (12.0-15.0); WHITE BLOOD COUNT 6.5 x10^3/uL (4.8-10.8)
[2020-02-07] MEDS ORDERED: ENALAPRILAT 1.25 MG/ML VIAL IVP STA (20:18)
[2020-02-07 20:22] LABS: ALBUMIN 4.4 g/dL (3.2-5.5); ALBUMIN/GLOBULIN RATIO 1.5 (1.0-2.2); BILIRUBIN,TOTAL 0.8 mg/dL (0.2-1.0); CREATININE 1.6 mg/dL (0.6-1.2); TOTAL PROTEIN 7.3 g/dL (6.7-8.2)
[2020-02-07 20:23] LABS: INR 1.1 (0.8-1.2); PT - PROTHROMBIN TIME 11.7 secs (9.9-12.6)
[2020-02-07] MEDS ORDERED: fentaNYL 2,500 MCG/50 ML VIAL IV STA (20:38)
[2020-02-07] MEDS ORDERED: SODIUM CHLORIDE 0.9% 1,000 ML IV STA (20:39)
--- NOTE | 2020-02-07 20:39 | ED Physician Documentation ---
History of Present Illness - Stated complaint Stated Complaint: ALONZO,NAUSEA - Chief complaint Chief Complaint: Neuro - History obtained from History obtained from: Patient - Additonal information Additional information: 74-year-old male who has a past medical history that includes type 2 diabetes, hypertension chronic back pain as well as prostate cancer presents the emergency department for evaluation of headache for 3 weeks duration. He does have a history of headaches but this is different. Over the last 3 weeks it has gotten progressively worse wakes him up at night. Headache is bitemporal behind the sinuses. He denies cough congestion. This afternoon he felt he got suddenly severe and he did have some nausea and vomiting. To help manage the headache he has tried taking the tramadol that he usually uses for chronic back pain. Initially this was effective but no longer is. He has no fevers neck pain or nuchal rigidity. He denies vision changes, falls or trauma. He is not anticoa gulated. Pt presents with a BP for 202/105 meds: hctz, lisinopril, omeprazole, tramadl. xanax, flomax, humalog, nph Review of Systems Constitutional: denies: Fever, Chills Eyes: denies: Loss of vision, Decreased vision, Photophobia Ears: reports: Reviewed and negative Nose: reports: Reviewed and negative Throat: reports: Reviewed and negative Cardiac: denies: Chest pain / pressure, Palpitations Respiratory: denies: Dyspnea, Cough GI: reports: Nausea, Vomiting. denies: Abdominal Pain : denies: Dysuria, Frequency, Hesitancy Skin: denies: Rash, Lesions Musculoskeletal: denies: Neck pain, Back pain, Extremity pain Neurologic: reports: Headache. denies: Generalized weakness, Numbness, Difficulty speaking, Syncope, Seizure, Confused, Altered mental status, Head injury, LOC PD PAST MEDICAL HISTORY - Past Medical History Past Medical History: Yes Cardiovascular: Hypertension Respiratory: Sleep apnea Endocrine/Autoimmune: Type 2 diabetes GI: GERD, Ulcers, Diverticulitis : None HEENT: None Psych: None Musculoskeletal: Chronic back pain Derm: None - Past Surgical History Past Surgical History: Yes General: Appendectomy, Bowel surgery, Gastric surgery, Colonoscopy HEENT: Tonsil/Adenoidectomy - Present Medications Home Medications: Ambulatory Orders Medication Instructions Recorded Confirmed ALPRAZolam [Alprazolam] 0.5 - 1 mg PO DAILY PRN 04/23/14 02/07/20 Hydrochlorothiazide 37.5 mg PO DAILY 04/23/14 02/07/20 Hydrocodone/Acetaminophen 1 each PO BID PRN 04/23/14 07/03/16 [Hydrocodon-Acetaminophen 5-325] Insulin Lispro [Humalog] 25 units SQ BID 04/23/14 02/07/20 Insulin NPH Human Isophane 45 units SQ DAILY 04/23/14 02/07/20 [Humulin N] Omeprazole 20 mg PO BID 04/23/14 02/07/20 Aspirin [Aspir-Low] 1 tab ORAL DAILY 05/22/15 07/03/16 Naproxen [Naprosyn] 500 mg ORAL BID PRN 05/22/15 02/07/20 methocarbamoL [Methocarbamol] 1 tab ORAL TID PRN 05/22/15 02/07/20 Celecoxib [Celebrex] 1 cap PO DAILY 02/07/20 02/07/20 Tamsulosin HCl [Flomax] 1 cap PO DAILY 02/07/20 02/07/20 - Allergies Allergies/Adverse Reactions: Allergies Allergy/AdvReac Type Severity Reaction Status Date / Time morphine AdvReac Hallucinati Verified 02/07/20 19:37 ons - Social History Does the pt smoke?: No Smoking Status: Never smoker Does the pt drink ETOH?: No Does the pt have substance abuse?: No - Immunizations Immunizations: TDAP >10years/unknown - POLST Patient has POLST: No PD ED PE EXPANDED - General General: Alert, No acute distress, Well developed/nourished - HEENT HEENT: Atraumatic, PERRL, EOMI, Dentition normal - Neck Neck: Supple w/out meningeal sx. No: No tenderness - Cardiac Cardiac: Regular Rate, Regular Rhythm, Femoral strong equal, Cap refill < 2 sec. No: Murmur Present - Respiratory Respiratory: Clear to ausultation earl. No: Distress, Labored - Abdomen Abdomen: Normal Bowel sounds. No: Tender to palpation - Back Back: Normal exam. No: Vertebral tenderness, Soft tissue tenderness - Neuro Neuro: Alert and Oriented X 3, CNII-XII intact, PERRL, Cerebellar nl, Normal gait, Normal finger nose, Normal speech - GCS Eye Opening: Spontaneous Motor: Obeys Commands Verbal: Oriented Total: 15 Results - Vitals Vitals: Vital Signs - 24 hr 02/07/20 02/07/20 02/07/20 19:37 20:59 21:20 Temperature 36.5 C Heart Rate 90 61 62 Respiratory 16 16 13 Rate Blood Pressure 200/100 H 220/84 H 223/95 H O2 Saturation 96 94 98 02/07/20 02/07/20 02/07/20 21:25 21:30 21:35 Temperature Heart Rate 68 72 75 Respiratory 15 12 12 Rate Blood Pressure 170/102 H 199/82 H 188/79 H O2 Saturation 99 98 97 Oxygen O2 Source Room air - EKG (time done) 2004 Rate: Rate (enter#) (68) Rhythm: NSR [place]: Normal Intervals: Normal [place] QRS: Poor R wave progression Ischemia: Normal ST segments Compare to prior EKG: Old EKG unavailable Computer interpretation: Agree with computer - Labs Labs: Laboratory Tests 02/07/20 02/07/20 02/07/20 20:05 20:05 20:05 WBC 6.5 RBC 4.42 L Hgb 13.4 L Hct 40.6 L MCV 91.9 MCH 30.3 MCHC 33.0 RDW 12.4 Plt Count 318 MPV 9.0 Neut # (Auto) 4.4 Lymph # (Auto) 1.1 L Haakon # (Auto) 0.7 Eos # (Auto) 0.2 Baso # (Auto) 0.1 Absolute Nucleated RBC 0.00 Nucleated RBC % 0.0 PT 11.7 INR 1.1 Sodium 134 L Potassium 3.8 Chloride 94 L Carbon Dioxide 30 Anion Gap 10.0 BUN 37 H Creatinine 1.6 H Estimated GFR (MDRD) 43 L Glucose 157 H Calcium 10.0 Total Bilirubin 0.8 AST 26 ALT 36 Alkaline Phosphatase 54 Troponin I High Sens Total Protein 7.3 Albumin 4.4 Globulin 2.9 Albumin/Globulin Ratio 1.5 Lipase 26 02/07/20 20:05 WBC RBC Hgb Hct MCV MCH MCHC RDW Plt Count MPV Neut # (Auto) Lymph # (Auto) Haakon # (Auto) Eos # (Auto) Baso # (Auto) Absolute Nucleated RBC Nucleated RBC % PT INR Sodium Potassium Chloride Carbon Dioxide Anion Gap BUN Creatinine Estimated GFR (MDRD) Glucose Calcium Total Bilirubin AST ALT Alkaline Phosphatase Troponin I High Sens 6.8 Total Protein Albumin Globulin Albumin/Globulin Ratio Lipase - Rads (name of study) CT head Radiology: Final report received (No CT evidence of acute intracranial process) PD MEDICAL DECISION MAKING - ED course Complexity details: reviewed results, re-evaluated patient, considered differential, d/w patient, d/w family ED course: 74-year-old male with a history of type 2 diabetes hypertension presents the emergency department with 3 weeks of headache acutely worsening this evening with associated n/v. He is noted to have a markedly elevated blood pressure on presentation 200/100. Here in the emergency department he had a screening EKG that was nonischemic. High-sensitivity troponin negative. Screening labs also unremarkable with the exception of some chronic kidney disease which appears unchanged from baseline. He has had no focal neuro deficits and a normal cerebellar exam. Head CT was without acute findings. However despite multiple doses of both hydralazine and enalapril here in the emergency department he continues to have systolic blood pressures in the 200s with a diastolic blood pressure typically approaching 100. He is also had persistent nausea and poor control of the headache. This time I feel that he presents with hypertensive urgency and should be admitted to the hospital for further observation and management. 2240: I have spoken with Dr. Betancourt who has agreed to see and evaluate patient. he will be admitted on an observation status for now. Pt and his made aware and agreeable to admission Departure - Departure Disposition: ED Place in Observation Clinical Impression: Hypertensive urgency Headache Qualifiers: Headache type: unspecified Headache chronicity pattern: unspecified pattern Intractability: intractable Qualified Code(s): R51.9 - Headache, unspecified
--- NOTE | 2020-02-07 21:04 | CT Report ---
PROCEDURE: HEAD WO INDICATIONS: headache, htn, vomiting TECHNIQUE: Noncontrast 4.5 mm thick angled axial sections acquired from the foramen magnum to the vertex. For r adiation dose reduction, the following was used: automated exposure control, adjustment of mA and/or kV according to patient size. COMPARISON: None. FINDINGS: Image quality: Excellent. CSF spaces: Basal cisterns are patent. No extra-axial fluid collections. Ventricles are normal in size and shape. Brain: No midline shift. No intracranial masses or hemorrhage. Shaw-white matter interface is norm al. Skull and face: Calvarium and visualized facial bones are intact, without suspicious lesions. Sinuses: There is opacification of one of the left-sided ethmoid air cells. Sinuses and mastoids are otherwise clear.. IMPRESSION: 1. No CT evidence of acute intracranial process. Reviewed by: Emmy Briscoe MD on 02/07/2020 9:03 PM PST Approved by: Emmy Briscoe MD on 02/07/2020 9:03 PM PST Station ID: [id number]
[2020-02-07] MEDS ORDERED: hydrALAZINE INJ 20 MG/ML VIAL IVP STA ×2 (21:11→22:12)
[2020-02-07] MEDS ORDERED: ONDANSETRON 4 MG/2 ML VIAL IVP STA (21:25)
[2020-02-07] MEDS ORDERED: fentaNYL 100 MCG/2 ML VIAL IVP STA (21:30)
[2020-02-07] MEDS ORDERED: PROCHLORPERAZINE 10 MG/2 ML VIAL IVP STA (21:55)
--- NOTE | 2020-02-07 21:59 | XRAY Report ---
PROCEDURE: Chest 1 View X-Ray INDICATIONS: chest pain TECHNIQUE: One view of the chest was acquired. COMPARISON: 04/23/2014 FINDINGS: Surgical changes and devices: None. Lungs and pleura: No pleural effusions or pneumothorax. Minor strand-like opacity in the right infra hilar region.. Mediastinum: Small hiatal hernia present. Mildly prominent pulmonary arteries. No central venous rema estion. Heart size is is mildly enlarged.. Bones and chest wall: No suspicious bony lesions. Overlying soft tissues appear unremarkable. IMPRESSION: 1. Mild cardiomegaly without radiographic evidence of acute CHF. 2. Minor right infrahilar strand-like opacity may be seen in viral pneumonia less likely fibrosis. Reviewed by: Emmy Briscoe MD on 02/07/2020 9:57 PM PST Approved by: Emmy Briscoe MD on 02/07/2020 9:57 PM PST Station ID: [id number]
[2020-02-07] MEDS ORDERED: SODIUM CHLORIDE FLUSH 0.9% 10 ML SYRINGE IVP PRN (22:46)
[2020-02-07] MEDS ORDERED: hydrALAZINE INJ 20 MG/ML VIAL IVP PRN (22:50)
[2020-02-07] MEDS ORDERED: LABETALOL 20 MG/4 ML SYRINGE IVP PRN (22:51)
[2020-02-07] MEDS ORDERED: METOCLOPRAMIDE 10 MG/2 ML VIAL IVP STA (23:00)
--- NOTE | 2020-02-07 23:00 | HISTORY & PHYSICAL EXAMINATION ---
Chief Complaint - Chief Complaint Chief Complaint: headache History of Present Illness - Admitted From Admitted From:: [facility] ED - History Obtained From Records Reviewed: yes History obtained from: patient - History of Present Illness HPI Comment/Other: Patient is a 74-year-old male with medical history significant for diabetes mellitus on insulin, hypertension, GERD, chronic back pain, BPH, insomnia, obstructive sleep apnea on CPAP who presented to the ED with complaint of headache and nausea. Symptoms started about 3 weeks ago and have been getting steadily worse. It has been especially worse over the past few days. He reports feeling slightly dizzy. In the ED he was found to have a systolic blood pressure as high as 235/95. He was given a couple of doses of hydralazine in the ED with no significant improvement in his blood pressure. Consequently he was presented for admission for further management. He had a CT scan of the brain done which was unremarkable. At bedside he denies chest pain, dyspnea, abdominal pain or fever. He has been nauseous and vomited within the hour of my exam. He also reported chills. He reports a remote history of having renal ultrasound done 20 years ago. He is on lisinopril and hydrochlorothiazide. History - Past Medical History Cardiovascular: reports: Hypertension Respiratory: reports: Sleep apnea Endocrine/Autoimmune: reports: Type 2 diabetes, Other (Insomnia) GI: reports: GERD, Ulcers, Diverticulitis : reports: Benign prostate hypertrophy HEENT: reports: None Psych: reports: None Musculoskeletal: reports: Chronic back pain Derm: reports: None MRSA Hx?: No - Past Surgical History General: reports: Appendectomy, Bowel surgery, Gastric surgery, Colonoscopy HEENT: reports: Tonsil/Adenoidectomy - Family & Social History Family History: Father: Hypertension Living arrangement: At home Living Situation: With spouse/s.o. Social History Notes: He denies tobacco use and recreational substances. He rarely drinks alcohol. - POLST Patient has POLST: No POLST Status: Full Code Meds/Allgy - Home Medications Home Medications: Ambulatory Orders Medication Instructions Recorded Confirmed ALPRAZolam [Alprazolam] 0.5 - 1 mg PO DAILY PRN 04/23/14 02/07/20 Hydrochlorothiazide 37.5 mg PO DAILY 04/23/14 02/07/20 Hydrocodone/Acetaminophen 1 each PO BID PRN 04/23/14 07/03/16 [Hydrocodon-Acetaminophen 5-325] Insulin Lispro [Humalog] 25 units SQ BID 04/23/14 02/07/20 Insulin NPH Human Isophane 45 units SQ DAILY 04/23/14 02/07/20 [Humulin N] Omeprazole 20 mg PO BID 04/23/14 02/07/20 Aspirin [Aspir-Low] 1 tab ORAL DAILY 05/22/15 07/03/16 Naproxen [Naprosyn] 500 mg ORAL BID PRN 05/22/15 02/07/20 methocarbamoL [Methocarbamol] 1 tab ORAL TID PRN 05/22/15 02/07/20 Celecoxib [Celebrex] 1 cap PO DAILY 02/07/20 02/07/20 Tamsulosin HCl [Flomax] 1 cap PO DAILY 02/07/20 02/07/20 - Allergies Allergies/Adverse Reactions: Allergies Allergy/AdvReac Type Severity Reaction Status Date / Time morphine AdvReac Hallucinati Verified 02/07/20 19:37 ons Review of Systems - Constitutional Constitutional: reports: Chills. denies: Fatigue, Fever, Weakness - Eyes Eyes: denies: Pain, Vision loss, Dipolpia - Ears, Nose & Throat Ears, Nose & Throat: denies: Ear pain, Sore throat, Hoarseness - Cardiovascular Cariovascular: denies: Irregular heart rate, Palpitations, Chest pain, Edema, Lightheadedness, Syncope, Exertional dyspnea - Respiratory Respiratory: denies: Cough, Sputum production, Wheezing, SOB at rest, SOB with exertion - Gastrointestinal Gastrointestinal: reports: Nausea, Vomiting. denies: Abdominal pain, Abdominal distention, Constipation, Diarrhea, Coffee grounds emesis, Reflux/heartburn - Genitourinary Genitourinary: denies: Dysuria, Frequency, Urgency, Hematuria, Incontinence, Flank pain - Musculoskeletal Musculoskeletal: reports: Back pain. denies: Muscle pain, Muscle aches, Stiffness - Integumentary Integumentary: denies: Rash, Pruritis, Lesions, Dryness - Neurological Neurological: reports: Headache, Dizziness. denies: General weakness, Focal weakness - Psychiatric Psychiatric: denies: Depression, Anxiety - Endocrine Endocrine: denies: Polyuria, Polydypsia - Hematologic/Lymphatic Hematologic/Lymphatic: denies: Anemia, Bruising Prior Level of Functionality: Patient is independent of activities of daily living. Exam - Vital Signs Vital Signs: Vital Signs x48h Temp Pulse Resp BP Pulse Ox 02/07/20 22:54 196/76 H 02/07/20 22:30 88 15 144/119 H 95 02/07/20 22:25 86 15 195/76 H 94 02/07/20 22:20 87 15 206/84 H 96 02/07/20 22:15 80 18 191/76 H 92 02/07/20 21:35 75 12 188/79 H 97 02/07/20 21:30 72 12 199/82 H 98 02/07/20 21:25 68 15 170/102 H 99 02/07/20 21:20 62 13 223/95 H 98 02/07/20 20:59 61 16 220/84 H 94 02/07/20 19:37 36.5 C 90 16 200/100 H 96 - Physical Exam General Appearance: positive: Alert, Moderate distress Eyes Bilateral: positive: PERRL, EOMI ENT: positive: No signs of dehydration Neck: positive: No JVD, Trachea midline Respiratory: positive: Chest non-tender, No respiratory distress, Breath sounds nml. negative: Wheezes, Rales, Rhonchi Cardiovascular: positive: Regular rate & rhythm, No murmur Abdomen: positive: Non-tender, No organomegaly, Nml bowel sounds, No distention. negative: Guarding, Rebound Back: positive: Nml inspection Skin: positive: Color nml, No rash, Warm, Dry. negative: Diaphoresis Extremities: positive: Non-tender, Full ROM, Nml appearance, No pedal edema Neurologic/Psychiatric: positive: Oriented x3, Mood/affect nml Conclusion/Plan - Problem List (1) Hypertensive urgency Conclusion/Plan: Refractory. Patient was given a couple of doses of hydralazine in the ED with no improvement. Hydralazine 10 mg IV every 4 hours as needed ordered for systolic blood pressure greater than 180. Labetalol 10 mg IV every 4 hours as needed ordered for systolic blood pressure greater than 180 We will continue patient's lisinopril and hydrochlorothiazide. If patient's blood pressure remains refractory will consider transferring to the ICU and placing the patient on an antihypertensive drip Renal ultrasound has been ordered for the morning to assess for renal artery stenosis. (2) Diabetes mellitus Conclusion/Plan: Patient is on insulin NPH 45 units daily. Lantus 30 units subcu nightly ordered. Moderate dose sliding scale insulin ordered with Accu-Cheks. (3) Obstructive sleep apnea Conclusion/Plan: We will order home CPAP. (5) Chronic back pain Conclusion/Plan: Oxycodone and Tylenol ordered as needed (6) BPH (benign prostatic hyperplasia) Conclusion/Plan: On tamsulosin (7) Chronic kidney disease Conclusion/Plan: Stage III. GFR is 43 and creatinine 1.6. Likely secondary to hypertension and diabetes. Patient is on lisinopril and hydrochlorothiazide. We will continue to monitor. Renal ultrasound ordered to assess for renal artery stenosis. Qualifiers: Chronic kidney disease stage: stage 3 (moderate) (8) Headache Conclusion/Plan: Likely due to uncontrolled hypertension/hypertensive urgency. Anticipating improvement with treatment of blood pressure. Tylenol and oxycodone ordered as needed Qualifiers: Headache type: unspecified Headache chronicity pattern: unspecified pattern Intractability: intractable Qualified Code(s): R51.9 - Headache, unspecified - Lab Results Fish Bones: 02/07/20 20:05 02/07/20 20:05 Core Measures - Anticipated LOS I expect patient to be DC'd or transferred within 96 hours.: Yes - DVT/VTE - Prophylaxis VTE/DVT Device ordered at admit?: Yes VTE/DVT Prophylaxis med ordered at admit?: Yes
[2020-02-07] MEDS ORDERED: LORazepam 2 MG/ML VIAL IVP PRN (23:53)
[2020-02-08] MEDS: SODIUM CHLORIDE FLUSH 0.9% 10 ML SYRINGE IVP SCH ×3 (00:23→17:01)
[2020-02-08] MEDS ORDERED: ONDANSETRON 4 MG/2 ML VIAL IVP PRN (00:26)
[2020-02-08] MEDS ORDERED: PROMETHAZINE INJ 25 MG in SODIUM CHLORIDE 0.9% 50 ML IV PRN (00:27)
[2020-02-08 01:40] LABS: C. PNEUMONIAE- RESP PCR PANEL NOT DETECTED
[2020-02-08 04:37] LABS: BILIRUBIN,URINE NEGATIVE (NEGATIVE); CLARITY,URINE CLEAR (CLEAR); GLUCOSE, URINE (UA) 500 mg/dL (NEGATIVE); KETONES,URINE (UA) TRACE mg/dL (NEGATIVE); LEUKOCYTE ESTERASE, URINE NEGATIVE (NEGATIVE); NITRITE,URINE NEGATIVE (NEGATIVE); OCCULT BLOOD,URINE NEGATIVE (NEGATIVE); PH,URINE 6.5 PH (5.0-7.5); PROTEIN,URINE NEGATIVE (NEGATIVE); UROBILINOGEN,URINE 0.2 (NORMAL) E.U./dL (NORMAL)
[2020-02-08] MEDS: INSULIN ASPART 300 UNIT/3 ML PEN SUBQ SCH ×5 (08:25→21:03)
[2020-02-08] MEDS: ACETAMINOPHEN 325 MG TABLET PO PRN (08:32)
[2020-02-08] MEDS ORDERED: hydroCHLOROthiazide 25 MG TABLET PO SCH (09:00)
[2020-02-08] MEDS ORDERED: lisinopriL 5 MG TABLET PO SCH (09:00)
[2020-02-08] MEDS ORDERED: KETOROLAC 15 MG/ML VIAL IVP STA (10:36)
--- NOTE | 2020-02-08 10:54 | Ultrasound Report ---
PROCEDURE: Retroperitoneal Limited INDICATIONS: refractory hypertension. ?Renal artery stenosis TECHNIQUE: Real time scanning was performed of both kidneys, followed by Color and pulsed Doppler in terrogation of the renal vessels. COMPARISON: None. FINDINGS: Aortic peak systolic velocity: 134 cm/s. Right side: Shaw-scale imaging: Kidney is 10.7 cm long; renal cortical thickness is 0.7 cm. No hydronephrosis. No nephrolithiasis. Renal cortex demonstrates diffusely increased echogenicity. No suspicious lior d renal masses. Right mid renal cyst measuring 4.5 x 2.8 x 3.1 cm. Proximal renal artery peak systolic velocity: 188 cm/s. Mid renal artery peak systolic velocity: 78 cm/s. Distal renal artery peak systolic velocity: 29 cm/s. Renal vein: Right renal vein could not be imaged secondary to patient scanning characteristics and ov erlying bowel gas. Peak renal/aortic ratio (RAR): 1.4. Left side: Shaw-scale imaging: Kidney is 10.5 cm long; renal cortical thickness is 1.2 cm. No hydronephrosis. No nephrolithiasis. Renal cortical echogenicity is within normal limits to slightly echogenic. No suspicious solid renal masses. Proximal renal artery peak systolic velocity: 372 cm/s. Mid-renal artery peak systolic velocity: 60 cm/s. Distal renal artery peak systolic velocity: 73 cm/s. Renal vein: Patent, without thrombus. Peak renal/aortic ratio (RAR): 2.8. IMPRESSION: 1. Elevated left proximal renal artery peak systolic velocity of 372 cm/s suggestive of greater than 60% stenosis. Normal peak renal/aortic ratio of 2.8. 2. No evidence for significant renal artery stenosis on the right. 3. Increased renal cortical echogenicity more pronounced on the right compatible with sequela of build engineer deonte medical renal disease. 4. No evidence for obstructive uropathy. 5. A 4.5 cm right mid kidney simple cyst. Reviewed by: Gerald Travis MD on 02/08/2020 10:53 AM PST Approved by: Gerald Travis MD on 02/08/2020 10:53 AM PST Station ID: [id number]
[2020-02-08] MEDS: PANTOPRAZOLE 40 MG TABLET PO SCH (11:19)
[2020-02-08] MEDS: amLODIPine 5 MG TABLET PO SCH (13:26)
--- NOTE | 2020-02-08 14:57 | PROVIDER PROGRESS NOTE ---
Subjective - Prog Note Date Prog Note Date: 02/08/20 - Subjective Subjective: He still complains of a headache although it is improved to 4 out of 10 after receiving Toradol. Has no more nausea or vomiting. He reports being compliant with his antihypertensives at home. Reports no dyspnea Current Medications - Current Medications Current Medications: Active Medications Acetaminophen (Acetaminophen 325 Mg Tablet) 650 mg PO Q6HR PRN PRN Reason: Pain 1 to 4 Last Admin: 02/08/20 08:32 Dose: 650 mg Documented by: Amlodipine Besylate (Amlodipine 5 Mg Tablet) 5 mg PO DAILY [facility] Last Admin: 02/08/20 13:26 Dose: 5 mg Documented by: Hydrochlorothiazide (Hydrochlorothiazide 25 Mg Tablet) 25 mg PO DAILY [facility] Promethazine HCl 25 mg/ Sodium (Chloride) 51 mls @ 100 mls/hr IV Q6H PRN PRN Reason: Nausea / Vomiting Insulin Aspart (Insulin Aspart 300 Unit/3 Ml Pen) 1 - 9 unit SUBQ 0800,1200,1700,2100 [facility]; Protocol Last Admin: 02/08/20 11:55 Dose: 5 unit Documented by: Insulin Glargine (Insulin Glargine 300 Unit/3 Ml Pen) 30 unit SUBQ QPM [facility] Lisinopril (Lisinopril 20 Mg Tablet) 20 mg PO DAILY [facility] Ondansetron HCl (Ondansetron 4 Mg/2 Ml Vial) 4 mg IVP Q4HR PRN PRN Reason: Nausea / Vomiting Oxycodone HCl (Oxycodone 5 Mg Tablet) 5 mg PO Q4HR PRN PRN Reason: Pain 5 to 7 Pantoprazole Sodium (Pantoprazole 40 Mg Tablet) 40 mg PO QDAC [facility] Last Admin: 02/08/20 11:19 Dose: 40 mg Documented by: Sodium Chloride (Sodium Chloride Flush 0.9% 10 Ml Syringe) 10 ml IVP PRN PRN PRN Reason: NEEDED PER PROVIDER ORDERS Sodium Chloride (Sodium Chloride Flush 0.9% 10 Ml Syringe) 10 ml IVP 0100,0900,1700 [facility] Last Admin: 02/08/20 08:29 Dose: 10 ml Documented by: ALPRAZolam [Alprazolam] 0.5 - 1 mg PO DAILY PRN 04/23/14 Hydrochlorothiazide 50 mg PO DAILY 04/23/14 Insulin Lispro [Humalog] 25 units SQ BID 04/23/14 Insulin NPH Human Isophane [Humulin N] 45 units SQ DAILY 04/23/14 Omeprazole 20 mg PO BID 04/23/14 Aspirin [Aspir-Low] 1 tab ORAL DAILY 05/22/15 Naproxen [Naprosyn] 500 mg ORAL BID PRN 05/22/15 methocarbamoL [Methocarbamol] 1 tab ORAL TID PRN 05/22/15 Celecoxib [Celebrex] 1 cap PO DAILY 02/07/20 Tamsulosin HCl [Flomax] 0.4 mg PO DAILY 02/07/20 Ezetimibe [Zetia] 10 mg PO DAILY 02/08/20 Lisinopril [Zestril] 40 mg PO DAILY 02/08/20 traMADol [Ultram] 50 mg PO TID PRN 02/08/20 Objective - Vital Signs/Intake & Output Reviewed Vital Signs: Yes Vital Signs: Vital Signs x48h Temp Pulse Pulse Resp BP Pulse Ox 02/08/20 13:16 36.8 C 83 16 97 02/08/20 11:36 36.8 C 83 18 193/91 H 93 02/08/20 08:41 115 H 187/86 H 02/08/20 08:00 37.4 C 100 16 202/88 H 92 Intake & Output: Intake & Output 02/05/20 02/06/20 02/07/20 02/08/20 23:59 23:59 23:59 23:59 Intake Total 500 480 Output Total 500 Balance 500 -20 - Objective General Appearance: positive: No acute distress, Alert Eyes Bilateral: positive: Normal inspection, Conjunctivae nml ENT: positive: ENT inspection nml, No signs of dehydration Respiratory: positive: No respiratory distress. negative: Wheezes, Rales Cardiovascular: positive: Regular rate & rhythm. negative: Tachycardia, Bradycardia, Systolic murmur Abdomen: positive: Non-tender, No distention. negative: Tenderness Skin: positive: Warm, Dry Extremities: positive: No pedal edema Neurologic/Psychiatric: positive: Oriented x3, Motor nml, Sensation nml. negative: Disoriented to person, Disoriented to place - Lab Results Fish Bones: 02/07/20 20:05 02/07/20 20:05 Other Labs: Lab Results x24hrs 1202/08/20 02/08/20 Range/Units 11:29 09:25 08:12 WBC (4.8-10.8) x10^3/uL RBC (4.70-6.10) 10^6/uL Hgb (14.0-18.0) g/dL Hct (42.0-52.0) % MCV (80.0-94.0) fL MCH (27.0-31.0) pg MCHC (32.0-36.0) g/dL RDW (12.0-15.0) % Plt Count (130-450) 10^3/uL MPV (7.4-11.4) fL Neut # (Auto) (1.5-6.6) 10^3/uL Lymph # (Auto) (1.5-3.5) 10^3/uL Grainger # (Auto) (0.0-1.0) 10^3/uL Eos # (Auto) (0.0-0.7) 10^3/uL Baso # (Auto) (0.0-0.1) 10^3/uL Absolute Nucleated RBC x10^3/uL Nucleated RBC % /100WBC PT (9.9-12.6) secs INR (0.8-1.2) Sodium (135-145) mmol/L Potassium (3.5-5.0) mmol/L Chloride (101-111) mmol/L Carbon Dioxide (21-32) mmol/L Anion Gap (6-13) BUN (6-20) mg/dL Creatinine (0.6-1.2) mg/dL Estimated GFR (MDRD) (>89) Glucose (70-100) mg/dL POC Whole Bld Glucose 260 H 229 H (70 - 100) mg/dL Calcium (8.5-10.3) mg/dL Total Bilirubin (0.2-1.0) mg/dL AST (10-42) IU/L ALT (10-60) IU/L Alkaline Phosphatase (42-121) IU/L Troponin I High Sens (2.3-19.7) ng/L B-Natriuretic Peptide 38 (5-100) pg/mL Total Protein (6.7-8.2) g/dL Albumin (3.2-5.5) g/dL Globulin (2.1-4.2) g/dL Albumin/Globulin Ratio (1.0-2.2) Lipase (22-51) U/L Urine Color Urine Clarity (CLEAR) Urine pH (5.0-7.5) PH Ur Specific [place] (1.002-1.030) Urine Protein (NEGATIVE) mg/dL Urine Glucose (UA) (NEGATIVE) mg/dL Urine Ketones (NEGATIVE) mg/dL Urine Occult Blood (NEGATIVE) Urine Nitrite (NEGATIVE) Urine Bilirubin (NEGATIVE) Urine Urobilinogen (NORMAL) E.U./dL Ur Leukocyte Esterase (NEGATIVE) Ur Microscopic Review Urine Culture Comments Nasal Adenovirus (PCR) Nasal B. parapertussis DNA (PCR) Nasal Coronavir 229E PCR Nasal Coronavir HKU1 PCR Nasal Coronavir NL63 PCR Nasal Coronavir OC43 PCR Nasal Enterovir/Rhinovir PCR Nasal Influenza B PCR Nasal Influenza A PCR Nasal Parainfluen 1 PCR Nasal Parainfluen 2 PCR Nasal Parainfluen 3 PCR Nasal Parainfluen 4 PCR Nasal RSV (PCR) Nasal B.pertussis DNA PCR Nasal C.pneumoniae (PCR) Carlos Human Metapneumo PCR Nasal M.pneumoniae (PCR) Nasal SARS-CoV-2 (PCR) 02/08/20 02/07/20 02/07/20 Range/Units 04:15 23:14 20:05 WBC (4.8-10.8) x10^3/uL RBC (4.70-6.10) 10^6/uL Hgb (14.0-18.0) g/dL Hct (42.0-52.0) % MCV (80.0-94.0) fL MCH (27.0-31.0) pg MCHC (32.0-36.0) g/dL RDW (12.0-15.0) % Plt Count (130-450) 10^3/uL MPV (7.4-11.4) fL Neut # (Auto) (1.5-6.6) 10^3/uL Lymph # (Auto) (1.5-3.5) 10^3/uL Grainger # (Auto) (0.0-1.0) 10^3/uL Eos # (Auto) (0.0-0.7) 10^3/uL Baso # (Auto) (0.0-0.1) 10^3/uL Absolute Nucleated RBC x10^3/uL Nucleated RBC % /100WBC PT (9.9-12.6) secs INR (0.8-1.2) Sodium (135-145) mmol/L Potassium (3.5-5.0) mmol/L Chloride (101-111) mmol/L Carbon Dioxide (21-32) mmol/L Anion Gap (6-13) BUN (6-20) mg/dL Creatinine (0.6-1.2) mg/dL Estimated GFR (MDRD) (>89) Glucose (70-100) mg/dL POC Whole Bld Glucose (70 - 100) mg/dL Calcium (8.5-10.3) mg/dL Total Bilirubin (0.2-1.0) mg/dL AST (10-42) IU/L ALT (10-60) IU/L Alkaline Phosphatase (42-121) IU/L Troponin I High Sens 6.8 (2.3-19.7) ng/L B-Natriuretic Peptide (5-100) pg/mL Total Protein (6.7-8.2) g/dL Albumin (3.2-5.5) g/dL Globulin (2.1-4.2) g/dL Albumin/Globulin Ratio (1.0-2.2) Lipase (22-51) U/L Urine Color YELLOW Urine Clarity CLEAR (CLEAR) Urine pH 6.5 (5.0-7.5) PH Ur Specific [place] 1.015 (1.002-1.030) Urine Protein NEGATIVE (NEGATIVE) mg/dL Urine Glucose (UA) 500 H (NEGATIVE) mg/dL Urine Ketones TRACE (NEGATIVE) mg/dL Urine Occult Blood NEGATIVE (NEGATIVE) Urine Nitrite NEGATIVE (NEGATIVE) Urine Bilirubin NEGATIVE (NEGATIVE) Urine Urobilinogen 0.2 (NORMAL) (NORMAL) E.U./dL Ur Leukocyte Esterase NEGATIVE (NEGATIVE) Ur Microscopic Review NOT INDICATED Urine Culture Comments NOT INDICATED Nasal Adenovirus (PCR) NOT DETECTED Nasal B. parapertussis DNA (PCR) NOT DETECTED Nasal Coronavir 229E PCR NOT DETECTED Nasal Coronavir HKU1 PCR NOT DETECTED Nasal Coronavir NL63 PCR NOT DETECTED Nasal Coronavir OC43 PCR NOT DETECTED Nasal Enterovir/Rhinovir PCR NOT DETECTED Nasal Influenza B PCR NOT DETECTED Nasal Influenza A PCR NOT DETECTED Nasal Parainfluen 1 PCR NOT DETECTED Nasal Parainfluen 2 PCR NOT DETECTED Nasal Parainfluen 3 PCR NOT DETECTED Nasal Parainfluen 4 PCR NOT DETECTED Nasal RSV (PCR) NOT DETECTED Nasal B.pertussis DNA PCR NOT DETECTED Nasal C.pneumoniae (PCR) NOT DETECTED Carlos Human Metapneumo PCR NOT DETECTED Nasal M.pneumoniae (PCR) NOT DETECTED Nasal SARS-CoV-2 (PCR) NOT DETECTED 02/07/20 02/07/20 02/07/20 Range/Units 20:05 20:05 20:05 WBC 6.5 (4.8-10.8) x10^3/uL RBC 4.42 L (4.70-6.10) 10^6/uL Hgb 13.4 L (14.0-18.0) g/dL Hct 40.6 L (42.0-52.0) % MCV 91.9 (80.0-94.0) fL MCH 30.3 (27.0-31.0) pg MCHC 33.0 (32.0-36.0) g/dL RDW 12.4 (12.0-15.0) % Plt Count 318 (130-450) 10^3/uL MPV 9.0 (7.4-11.4) fL Neut # (Auto) 4.4 (1.5-6.6) 10^3/uL Lymph # (Auto) 1.1 L (1.5-3.5) 10^3/uL Grainger # (Auto) 0.7 (0.0-1.0) 10^3/uL Eos # (Auto) 0.2 (0.0-0.7) 10^3/uL Baso # (Auto) 0.1 (0.0-0.1) 10^3/uL Absolute Nucleated RBC 0.00 x10^3/uL Nucleated RBC % 0.0 /100WBC PT 11.7 (9.9-12.6) secs INR 1.1 (0.8-1.2) Sodium 134 L (135-145) mmol/L Potassium 3.8 (3.5-5.0) mmol/L Chloride 94 L (101-111) mmol/L Carbon Dioxide 30 (21-32) mmol/L Anion Gap 10.0 (6-13) BUN 37 H (6-20) mg/dL Creatinine 1.6 H (0.6-1.2) mg/dL Estimated GFR (MDRD) 43 L (>89) Glucose 157 H (70-100) mg/dL POC Whole Bld Glucose (70 - 100) mg/dL Calcium 10.0 (8.5-10.3) mg/dL Total Bilirubin 0.8 (0.2-1.0) mg/dL AST 26 (10-42) IU/L ALT 36 (10-60) IU/L Alkaline Phosphatase 54 (42-121) IU/L Troponin I High Sens (2.3-19.7) ng/L B-Natriuretic Peptide (5-100) pg/mL Total Protein 7.3 (6.7-8.2) g/dL Albumin 4.4 (3.2-5.5) g/dL Globulin 2.9 (2.1-4.2) g/dL Albumin/Globulin Ratio 1.5 (1.0-2.2) Lipase 26 (22-51) U/L Urine Color Urine Clarity (CLEAR) Urine pH (5.0-7.5) PH Ur Specific [place] (1.002-1.030) Urine Protein (NEGATIVE) mg/dL Urine Glucose (UA) (NEGATIVE) mg/dL Urine Ketones (NEGATIVE) mg/dL Urine Occult Blood (NEGATIVE) Urine Nitrite (NEGATIVE) Urine Bilirubin (NEGATIVE) Urine Urobilinogen (NORMAL) E.U./dL Ur Leukocyte Esterase (NEGATIVE) Ur Microscopic Review Urine Culture Comments Nasal Adenovirus (PCR) Nasal B. parapertussis DNA (PCR) Nasal Coronavir 229E PCR Nasal Coronavir HKU1 PCR Nasal Coronavir NL63 PCR Nasal Coronavir OC43 PCR Nasal Enterovir/Rhinovir PCR Nasal Influenza B PCR Nasal Influenza A PCR Nasal Parainfluen 1 PCR Nasal Parainfluen 2 PCR Nasal Parainfluen 3 PCR Nasal Parainfluen 4 PCR Nasal RSV (PCR) Nasal B.pertussis DNA PCR Nasal C.pneumoniae (PCR) Carlos Human Metapneumo PCR Nasal M.pneumoniae (PCR) Nasal SARS-CoV-2 (PCR) ABX Reporting Has patient been on IV antibiotics over the past 48 hours?: No Assessment/Plan - Problem List (1) Hypertensive urgency Impression: He presented with a systolic blood pressure in the 230s. There is no evidence of endorgan damage except potentially for the headache he was complaining of. His blood pressure has improved to the 180s systolic which is approximately 25% reduction which is at goal for the first 24 hours. Renal arterial ultrasound was obtained today which was concerning for greater than 60% stenosis in the proximal left renal artery. At this time, we will keep him hospitalized 1 more night to help monitor his blood pressure and control it further over next 24 hours. We have resumed his home dose of lisinopril 40 mg and hydrochlorothiazide 50 mg daily. We will add amlodipine 5 mg. I am hopeful that his blood pressure will be approximately 140-150 systolic tomorrow and that his headache will resolve and he will be stable for discharge. He will need outpatient follow-up for the renal artery stenosis. (2) Headache Impression: I suspect this is related to his hypertension. This has improved as his blood pressure decreased and he received Toradol. CT of the head was unremarkable. We will continue with Toradol as needed. We will continue to treat his hypertension as mentioned above. Qualifiers: Headache type: unspecified Headache chronicity pattern: unspecified pattern Intractability: intractable Qualified Code(s): R51.9 - Headache, unspecified (3) Chronic kidney disease Impression: He has chronic kidney disease with a baseline creatinine of 1.6. Is likely due to his underlying hypertension and diabetes. There is no evidence of acute ki dney injury. We have resumed his home lisinopril. Monitor his renal function. Qualifiers: Chronic kidney disease stage: stage 3 (moderate) (4) Diabetes mellitus Impression: He has a history of insulin-dependent type 2 diabetes mellitus. He is on NPH at home. His blood glucose is elevated in the 200s and this is likely due to him receiving a lower dose of insulin yesterday evening. We will continue his home insulin regimen during this hospitalization. Carb controlled diet. Qualifiers: Diabetes mellitus type: type 2 Diabetes mellitus mcfp insulin use: with mcfp use Diabetes mellitus complication status: with kidney complications Diabetes mellitus complication detail: with chronic kidney disease Chronic kidney disease stage: stage 3 (moderate) (5) GERD (gastroesophageal reflux disease) Impression: Stable. Continue Protonix. (6) Obstructive sleep apnea Impression: Stable. He is unable to bring his home CPAP he does not want to use the facility CPAP at this time. He will continue CPAP therapy when he is discharged at home. (7) BPH (benign prostatic hyperplasia) Impression: Stable. Continue Flomax.
[2020-02-08] MEDS: KETOROLAC 15 MG/ML VIAL IVP PRN ×2 (16:13→22:31)
[2020-02-08] MEDS: oxyCODONE 5 MG TABLET PO PRN ×2 (17:25→21:22)
[2020-02-08] MEDS: TAMSULOSIN 0.4 MG CAPSULE PO SCH (17:27)
[2020-02-08] MEDS ORDERED: hydrALAZINE INJ 20 MG/ML VIAL IVP ONE (20:59)
[2020-02-08] MEDS ORDERED: INSULIN GLARGINE 300 UNIT/3 ML PEN SUBQ SCH (21:00)
[2020-02-08] MEDS ORDERED: LABETALOL 20 MG/4 ML SYRINGE IVP PRN (22:42)
[2020-02-09] MEDS ORDERED: traMADol 50 MG TABLET PO PRN (00:06)
[2020-02-09] MEDS ORDERED: LORazepam 2 MG/ML VIAL IVP STA (00:06)
[2020-02-09] MEDS: SODIUM CHLORIDE FLUSH 0.9% 10 ML SYRINGE IVP SCH ×2 (02:14→08:51)
[2020-02-09] MEDS: PANTOPRAZOLE 40 MG TABLET PO SCH (06:29)
--- NOTE | 2020-02-09 08:15 | PHARMACY PROGRESS NOTE ---
- Best Possible Medication History Admit Date and Time: 02/07/20 2246 Processed by: Pharmacy Medication History completed: Yes Patient Interview: Completed Secondary Source(s): Insurance records As the person ultimately responsible for medication therapy, providers are able to order a medication from an existing home medication list in [facility] via the "Reconcile Routine" prior to Confirmation of that medication by client application support engineer. Such practice is discouraged except when the physician, in their clinical judgment, deems that a medical need exists for a medication without regard to previous use.
[2020-02-09 08:21] LABS: BASOPHILS # (AUTO) 0.1 10^3/uL (0.0-0.1); BASOPHILS % (AUTO) 0.8 %; EOSINOPHILS # (AUTO) 0.1 10^3/uL (0.0-0.7); EOSINOPHILS % (AUTO) 1.1 %; HGB - HEMOGLOBIN 14.3 g/dL (14.0-18.0); LYMPHOCYTES # (AUTO) 1.2 10^3/uL (1.5-3.5); LYMPHOCYTES % (AUTO) 13.5 %; MEAN CORPUSCULAR HEMOGLOBIN 31.2 pg (27.0-31.0); MEAN CORPUSCULAR VOLUME 91.7 fL (80.0-94.0); MEAN PLATELET VOLUME 8.9 fL (7.4-11.4); MONOCYTES # (AUTO) 0.8 10^3/uL (0.0-1.0); MONOCYTES % (AUTO) 9.3 %; NEUTROPHILS # (AUTO) 6.6 10^3/uL (1.5-6.6); NEUTROPHILS % (AUTO) 74.8 %; PLT - PLATELET COUNT 359 10^3/uL (130-450); RED BLOOD COUNT 4.59 10^6/uL (4.70-6.10); RED CELL DISTRIBUTION WIDTH 12.6 % (12.0-15.0); WHITE BLOOD COUNT 8.8 x10^3/uL (4.8-10.8)
[2020-02-09 08:29] LABS: CREATININE 1.8 mg/dL (0.6-1.2)
--- NOTE | 2020-02-09 08:29 | Discharge Plan ---
Discharge Plan Problem Reviewed?: Yes Disposition: Home, Self Care Condition: Stable Prescriptions: amLODIPine [Norvasc] 5 mg PO DAILY #30 tablet Diet: Diabetic (Low sodium) Activity Restrictions: Activity as Tolerated Health Concerns: You were seen in the hospital because of an elevated blood pressure in the 230s. He also had headache and complained of nausea and vomiting. You had a CT scan of your head which did not show any acute abnormalities. Your blood pressure improved with resumption of your lisinopril and hydrochlorothiazide as well as the addition of amlodipine to your blood pressure medications. We did do an ultrasound of your kidney arteries which was concerning for a tightness in your left kidney artery. This was suggestive of a 60% stenosis. It will be important to follow-up with your primary care provider to be referred to a specialist for further evaluation as you may benefit from intervention on this stenosis if your blood pressure remains difficult to control. We are also checking some blood work called metanephrines to look for what is called pheochromocytoma. This can cause you to have periodic episodes of high blood pressure and headaches. Plan of Treatment: Please continue to take lisinopril and hydrochlorothiazide. Please start taking amlodipine 5 mg daily. You should avoid all NSAIDs like Celebrex, naproxen, Advil, ibuprofen given your underlying kidney disease. You can take Tylenol 1000 mg up to 3 times a day as needed for your headache if it persists. You should also follow-up with your primary care provider for this as you may benefit from a neurology consult. Please do check your blood pressure at home and if it is routinely elevated greater than 170 or 180 then please call your primary care provider sooner or return to the emergency department. Care Goals: If you develop worsening headache again when you return home or nausea and vomiting then please return to the emergency department. Assessment: The patient expressed understanding of the treatment plan. Additional Instructions or Follow Up instructions: Please follow-up with your primary care provider in 1 week to monitor your blood pressure as they can adjust your medications as needed. No Smoking: If you smoke, Please STOP! Call for help. Follow-up with: Sheng Santamaria MD [Primary Care Provider] -
[2020-02-09] MEDS: INSULIN ASPART 300 UNIT/3 ML PEN SUBQ SCH ×3 (08:37→11:54)
[2020-02-09] MEDS: amLODIPine 5 MG TABLET PO SCH (08:38)
[2020-02-09] MEDS: TAMSULOSIN 0.4 MG CAPSULE PO SCH (08:39)
[2020-02-09] MEDS: ACETAMINOPHEN 325 MG TABLET PO PRN (08:51)
[2020-02-09] MEDS ORDERED: lisinopriL 20 MG TABLET PO SCH ×2 (09:00)
[2020-02-09] MEDS ORDERED: hydroCHLOROthiazide 25 MG TABLET PO SCH ×3 (09:00)
[2020-02-09] MEDS ORDERED: INSULIN NPH HUMAN 300 UNIT/3 ML VIAL SUBQ SCH (09:00)
[2020-02-09 10:41] VITALS: BP 188/79
--- NOTE | 2020-02-09 13:42 | DISCHARGE SUMMARY ---
"Discharge Summary Admit Date: 02/07/20 Discharge Date: 02/09/20 Discharging Provider: Denver Tatum Primary Care Provider: Eduin Santamaria Code Status: Attempt Resuscitation Condition at Discharge: Stable Discharge Disposition: 01 Home, Self Care - DIAGNOSES Admission Diagnoses: Hypertensive urgency Diabetes mellitus Obstructive sleep apnea Chronic back pain BPH Chronic kidney disease Headache Discharge Diagnoses with Status of Each Condition: Hypertensive urgency - improved Left renal artery stenosis - stable. Headache - improved. Chronic kidney disease, stage III - stable. Diabetes insulin treated with insulin - stable. GERD - stable. Obstructive sleep apnea on CPAP - stable. BPH - stable. - HPI History of Present Illness: H&P per Dr. Betancourt: Patient is a 74-year-old male with medical history significant for diabetes mellitus on insulin, hypertension, GERD, chronic back pain, BPH, insomnia, obstructive sleep apnea on CPAP who presented to the ED with complaint of headache and nausea. Symptoms started about 3 weeks ago and have been getting steadily worse. It has been especially worse over the past few days. He reports feeling slightly dizzy. In the ED he was found to have a systolic blood pressure as high as 235/95. He was given a couple of doses of hydralazine in the ED with no significant improvement in his blood pressure. Consequently he was presented for admission for further management. He had a CT scan of the brain done which was unremarkable. At bedside he denies chest pain, dyspnea, abdominal pain or fever. He has been nauseous and vomited within the hour of my exam. He also reported chills. He reports a remote history of having renal ultrasound done 20 years ago. He is on lisinopril and hydrochlorothiazide. - CONSULTS | PROCEDURES Procedures: CT of the head was unremarkable. Renal artery duplex revealed an elevated left proximal renal artery peak systolic velocity of 372 cm second suggestive of greater than 60% stenosis. Normal peak renal/aortic ratio of 2.8. No evidence of significant renal artery stenosis on the right. Increased renal cortical echogenicity more pronounced on the right compatible with sequela of chronic medical renal disease. No evidence for obstructive uropathy. A 4.5 similar right mid kidney simple cyst. - HOSPITAL COURSE Hospital Course: He was admitted for hypertensive urgency and headache that was felt to be due to his elevated blood pressure. He was given IV labetalol and hydralazine with improvement in his blood pressure although still remained elevated in the 170s to 180s. We aim for 25% reduction over the first 24 hours and this was achieved given his initial blood pressure was in the 230s. His home lisinopril was resumed at 40 mg daily as well as hydrochlorothiazide at 50 mg daily. We did add amlodipine 5 mg daily to this. Duplex of the renal arteries was obtained given his history of renal artery stenosis and this was suggestive of a 60% stenosis at the left renal artery. His headache did improve with a dose of Toradol. This was limited due to his history of chronic kidney disease. He was asked to continue to avoid all NSAIDs on discharge. His headache improved with improvement in his blood pressure. He had no evidence of neurologic deficits and so MRI and LP were not obtained. His blood pressure on discharge had improved to the 160s to 170s systolic. It was felt that this was stable for discharge given he felt improved and wanted to go home. I did add the amlodipine on discharge. I asked him to follow-up with his primary care provider check his blood pressure closely to ensure he does not become elevated again. I also asked him to follow-up with primary care provider given the findings of left renal artery stenosis. Plasma metanephrines were also checked and are pending given his episodic headache and blood pressure as well as tachycardia to rule out pheochromocytoma. This was discussed with the patient and will need to be followed up on an outpatient basis. I did ask him to return to the emergency room if he develops any change in vision, persistent headache, vomiting, neurologic deficits or a blood pressure that is persistently elevated at greater than 190. - ALLERGIES Allergies/Adverse Reactions: Allergies Allergy/AdvReac Type Severity Reaction Status Date / Time morphine AdvReac Hallucinati Verified 02/07/20 19:37 ons - MEDICATIONS Home Medications: Ambulatory Orders Medication Instructions Recorded Confirmed ALPRAZolam [Alprazolam] 0.5 - 1 mg PO DAILY PRN 04/23/14 02/07/20 Hydrochlorothiazide 50 mg PO DAILY 04/23/14 02/08/20 Insulin Lispro [Humalog] 25 units SQ BID 04/23/14 02/07/20 Insulin NPH Human Isophane 45 units SQ DAILY 04/23/14 02/07/20 [Humulin N] Omeprazole 20 mg PO BID 04/23/14 02/07/20 methocarbamoL [Methocarbamol] 1 tab ORAL TID PRN 05/22/15 02/07/20 Tamsulosin HCl [Flomax] 0.4 mg PO DAILY 02/07/20 02/08/20 Ezetimibe [Zetia] 10 mg PO DAILY 02/08/20 02/08/20 Lisinopril [Zestril] 40 mg PO DAILY 02/08/20 02/08/20 traMADol [Ultram] 50 mg PO TID PRN 02/08/20 02/08/20 amLODIPine [Norvasc] 5 mg PO DAILY #30 tablet 02/09/20 - PHYSICAL EXAM AT DISCHARGE General Appearance: positive: No acute distress, Alert Eyes Bilateral: positive: Normal inspection, PERRL, EOMI, Conjunctivae nml ENT: positive: ENT inspection nml Neck: positive: Nml inspection. negative: Stiff neck Respiratory: positive: No respiratory distress. negative: Wheezes, Rales Cardiovascular: positive: Regular rate & rhythm, No murmur. negative: Tachycardia, Systolic murmur Abdomen: positive: Non-tender, No distention. negative: Tenderness, Guarding, Rebound Skin: positive: Warm, Dry Extremities: positive: Full ROM, No pedal edema Neurologic/Psychiatric: positive: Oriented x3, Motor nml, Sensation nml. negative: Disoriented to person, Disoriented to place, Disoriented to time, Weakness, Facial droop, Slurred/abnml speech Physical Exam Other/Comments: Vital Signs - 24 hr 02/08/20 02/08/20 02/08/20 16:00 20:00 21:09 Temperature 36.6 C 36.8 C Heart Rate [ 81 Brachial] Heart Rate [ 80 78 Monitoring electrodes] Respiratory 20 18 Rate Blood Pressure 201/76 H [Left Brachial artery] Blood Pressure 191/72 H 198/82 H [Right Brachial artery] O2 Saturation 92 92 02/08/20 02/08/20 02/08/20 21:14 21:19 21:24 Temperature Heart Rate [ 81 83 88 Brachial] Heart Rate [ Monitoring electrodes] Respiratory Rate Blood Pressure 196/70 H 181/64 H 188/62 H [Left Brachial artery] Blood Pressure [Right Brachial artery] O2 Saturation 02/08/20 02/08/20 02/08/20 21:35 21:50 22:05 Temperature Heart Rate [ 92 91 92 Brachial] Heart Rate [ Monitoring electrodes] Respiratory Rate Blood Pressure 179/60 H 178/59 H 196/69 H [Left Brachial artery] Blood Pressure [Right Brachial artery] O2 Saturation 02/08/20 02/08/20 02/08/20 23:13 23:18 23:23 Temperature Heart Rate [ 82 Brachial] Heart Rate [ Monitoring electrodes] Respiratory Rate Blood Pressure 170/76 H 178/76 H 189/79 H [Left Brachial artery] Blood Pressure [Right Brachial artery] O2 Saturation 02/08/20 02/08/20 02/09/20 23:38 23:53 00:08 Temperature 36.7 C Heart Rate [ 71 82 72 Brachial] Heart Rate [ Monitoring electrodes] Respiratory 20 Rate Blood Pressure 167/68 H 183/81 H 177/68 H [Left Brachial artery] Blood Pressure [Right Brachial artery] O2 Saturation 94 02/09/20 02/09/20 02/09/20 06:15 09:00 09:30 Temperature 36.7 C 36.7 C Heart Rate [ 89 80 67 Brachial] Heart Rate [ Monitoring electrodes] Respiratory 18 18 Rate Blood Pressure 207/78 H 161/63 H [Left Brachial artery] Blood Pressure 176/76 H 208/87 H 197/74 H [Right Brachial artery] O2 Saturation 93 94 02/09/20 10:30 Temperature Heart Rate [ 75 Brachial] Heart Rate [ Monitoring electrodes] Respiratory Rate Blood Pressure 164/67 H [Left Brachial artery] Blood Pressure 188/79 H [Right Brachial artery] O2 Saturation Oxygen O2 Source Room air - LABS Result Diagrams: 02/09/20 08:15 02/09/20 08:15 Other Lab Results: Laboratory Results - last 24 hr 02/08/20 02/08/20 02/08/20 16:52 20:02 20:53 WBC RBC Hgb Hct MCV MCH MCHC RDW Plt Count MPV Neut # (Auto) Lymph # (Auto) Cottle # (Auto) Eos # (Auto) Baso # (Auto) Absolute Nucleated RBC Nucleated RBC % Sodium Potassium Chloride Carbon Dioxide Anion Gap BUN Creatinine Estimated GFR (MDRD) Glucose POC Whole Bld Glucose 280 H 286 H 294 H Calcium 02/09/20 02/09/20 08:15 08:15 WBC 8.8 RBC 4.59 L Hgb 14.3 Hct 42.1 MCV 91.7 MCH 31.2 H MCHC 34.0 RDW 12.6 Plt Count 359 MPV 8.9 Neut # (Auto) 6.6 Lymph # (Auto) 1.2 L Cottle # (Auto) 0.8 Eos # (Auto) 0.1 Baso # (Auto) 0.1 Absolute Nucleated RBC 0.00 Nucleated RBC % 0.0 Sodium 132 L Potassium 4.3 Chloride 92 L Carbon Dioxide 27 Anion Gap 13.0 BUN 49 H Creatinine 1.8 H Estimated GFR (MDRD) 37 L Glucose 259 H POC Whole Bld Glucose Calcium 10.0 - DIAGNOSTIC IMAGING Diagnostic Imaging Results: Final report reviewed - FOLLOW UP Follow Up: He was asked to check his blood pressure on a regular basis and to follow-up with primary care provider in 1 week. He will need follow-up given the concern for left renal artery stenosis. He will also need follow-up with a plasma metanephrines. - TIME SPENT Time Spent in Discharge (Minutes): 34"
== END 2020-02-09 14:45 | disposition home or self-care (01) ==
LOC: ED 19:32 → MS3 22:46
PROVIDERS: ADMIT Internal Medicine; ATTEND Internal Medicine
DX: I16.0 Hypertensive urgency (principal); I70.1 Atherosclerosis of renal artery; I10 Essential (primary) hypertension; K21.9 Gastro-esophageal reflux disease without esophagitis; G89.29 Other chronic pain; M54.9 Dorsalgia, unspecified; N40.0 Benign prostatic hyperplasia without lower urinary tract symptoms; G47.00 Insomnia, unspecified; G47.33 Obstructive sleep apnea (adult) (pediatric); E11.22 Type 2 diabetes mellitus with diabetic chronic kidney disease; I12.9 Hypertensive chronic kidney disease with stage 1 through stage 4 chronic kidney disease, or unspecified chronic kidney disease; N18.30 Chronic kidney disease, stage 3 unspecified; Z79.4 Long term (current) use of insulin; Z79.899 Other long term (current) drug therapy
CPT/HCPCS: 36415; 70450; 71045; 76775; 80048; 80053; 81003; 83690; 83835; 83880; 84484; 85025; 85610; 87631; 93005; 96361; 96374; 96375; 96376; 99284; 99285; A9270; G0378; J1815; J2060; J2765; 0202U; 81001; 87086

== ENCOUNTER 2020-03-13 08:00 | Outpatient (CLI) | payer MEDICARE ==
[2020-03-13 07:38] LABS: MUDS CUTOFF CONCENTRATIONS CUTOFF CONC BELOW:
[2020-03-13 07:48] LABS: CREATININE 1.8 mg/dL (0.6-1.2)
[2020-03-13 08:09] LABS: AMPHETAMINE SCREEN,URINE NEGATIVE (NEGATIVE); BENZODIAZEPINES SCREEN, URINE POSITIVE (NEGATIVE); COCAINE SCREEN URINE NEGATIVE (NEGATIVE); METHADONE SCREEN, URINE NEGATIVE (NEGATIVE); METHAMPHETAMINES SCREEN, URINE NEGATIVE (NEGATIVE); OPIATE SCREEN, URINE NEGATIVE (NEGATIVE); OXYCODONE SCREEN, URINE NEGATIVE (NEGATIVE); PROPOXYPHENE SCREEN, URINE NEGATIVE (NEGATIVE); TRICYCLIC ANTIDEPRESSANT,URINE NEGATIVE (NEGATIVE)
[2020-03-13 12:43] LABS: HEMOGLOBIN A1c% 7.5 % (4.27-6.07)
== END 2020-03-13 23:59 | disposition home or self-care (01) ==
LOC: LAB 08:00
PROVIDERS: ATTEND Family Medicine
DX: E11.9 Type 2 diabetes mellitus without complications (principal)
CPT/HCPCS: 36415; 80306; 82043; 82565; 83036; 84132; 84295

== ENCOUNTER 2020-05-21 07:32 | Outpatient (CLI) | payer MEDICARE ==
[2020-05-21 08:04] LABS: CREATININE 1.6 mg/dL (0.6-1.2); POTASSIUM 3.7 mmol/L (3.5-5.0)
== END 2020-05-21 07:33 | disposition home or self-care (01) ==
LOC: LAB 07:32
PROVIDERS: ATTEND Urology
DX: C61 Malignant neoplasm of prostate (principal); E11.9 Type 2 diabetes mellitus without complications
CPT/HCPCS: 36415; 80048; 84153

== ENCOUNTER 2020-07-22 07:07 | Outpatient (CLI) | payer MEDICARE ==
[2020-07-22 08:40] LABS: ESTIMATED AVERAGE GLUCOSE 177 mg/dL (70-100); HEMOGLOBIN A1c% 7.8 % (4.27-6.07)
== END 2020-07-22 07:08 | disposition home or self-care (01) ==
LOC: LAB 07:07
PROVIDERS: ATTEND Family Medicine
DX: E11.9 Type 2 diabetes mellitus without complications (principal)
CPT/HCPCS: 36415; 83036

== ENCOUNTER 2020-09-22 07:12 | Outpatient (CLI) | payer MEDICARE ==
[2020-09-22 07:21] LABS: MUDS CUTOFF CONCENTRATIONS CUTOFF CONC BELOW:
[2020-09-22 07:53] LABS: AMPHETAMINE SCREEN,URINE NEGATIVE (NEGATIVE); COCAINE SCREEN URINE NEGATIVE (NEGATIVE); METHAMPHETAMINES SCREEN, URINE NEGATIVE (NEGATIVE); OPIATE SCREEN, URINE NEGATIVE (NEGATIVE); THC CANNABINOID SCREEN, URINE NEGATIVE (NEGATIVE)
[2020-09-22 07:54] LABS: BARBITURATE SCREEN,UR NEGATIVE (NEGATIVE); BENZODIAZEPINES SCREEN, URINE POSITIVE (NEGATIVE); METHADONE SCREEN, URINE NEGATIVE (NEGATIVE); OXYCODONE SCREEN, URINE NEGATIVE (NEGATIVE); PROPOXYPHENE SCREEN, URINE NEGATIVE (NEGATIVE); TRICYCLIC ANTIDEPRESSANT,URINE NEGATIVE (NEGATIVE)
== END 2020-09-22 07:13 | disposition home or self-care (01) ==
LOC: LAB 07:12
PROVIDERS: ATTEND Physician Assistant
DX: M47.817 Spondylosis without myelopathy or radiculopathy, lumbosacral region (principal)
CPT/HCPCS: 80306

== ENCOUNTER 2020-10-03 07:24 | Outpatient (CLI) | payer MEDICARE | END 2020-10-03 07:25 | disposition home or self-care (01) | LOC: LAB 07:24 | PROVIDERS: ATTEND Urology | DX: C61 Malignant neoplasm of prostate (principal) | CPT/HCPCS: 36415; 84153 ==

== ENCOUNTER 2021-05-04 09:31 | Outpatient (CLI) | payer MEDICARE | END 2021-05-04 09:32 | disposition home or self-care (01) | LOC: LAB 09:31 | PROVIDERS: ATTEND Urology | DX: C61 Malignant neoplasm of prostate (principal) | CPT/HCPCS: 36415; 84153 ==

== ENCOUNTER 2021-06-24 12:20 | Emergency (ER) | payer MEDICARE ==
[2021-06-24 13:03] LABS: BILIRUBIN,URINE NEGATIVE (NEGATIVE); GLUCOSE, URINE (UA) NEGATIVE (NEGATIVE); KETONES,URINE (UA) NEGATIVE (NEGATIVE); LEUKOCYTE ESTERASE, URINE TRACE (NEGATIVE); NITRITE,URINE NEGATIVE (NEGATIVE); OCCULT BLOOD,URINE LARGE (NEGATIVE); PROTEIN,URINE 100 mg/dL (NEGATIVE); UROBILINOGEN,URINE 0.2 (NORMAL) E.U./dL (NORMAL)
--- NOTE | 2021-06-24 13:14 | ED Physician Documentation ---
History of Present Illness - Stated complaint Stated Complaint: UNABLE TO URINATE - Chief complaint Chief Complaint: Abd Pain - History obtained from History obtained from: Patient, Family - History of Present Illness Timing: How many weeks ago (1) Pain level max: 3 Pain level now: 2 - Additonal information Additional information: Patient is a 76-year-old male who presents to the emergency department with dysuria, urinary frequency, chills and a reported "low-grade" fever intermittently over the past week. Nothing makes it better or worse. No abdominal pain, back pain. No nausea or vomiting. He does have a history of prostate cancer. He states he is not currently undergoing treatment for this. No headache. Patient states that he is able to urinate, but does have urgency and frequency Review of Systems Constitutional: reports: Chills Throat: denies: Sore throat Cardiac: denies: Palpitations Respiratory: denies: Cough GI: denies: Abdominal Pain, Nausea, Vomiting, Diarrhea : reports: Dysuria, Frequency, Hesitancy Musculoskeletal: denies: Neck pain, Back pain Neurologic: denies: Headache PD PAST MEDICAL HISTORY - Past Medical History Past Medical History: Yes Cardiovascular: Hypertension, High cholesterol Respiratory: Sleep apnea, CPAP use Neuro: Headaches Endocrine/Autoimmune: Type 2 diabetes, Other GI: GERD, Ulcers, Diverticulitis : Benign prostate hypertrophy HEENT: None Psych: Depression, Anxiety Musculoskeletal: Osteoarthritis, Chronic back pain Derm: None - Past Surgical History Past Surgical History: Yes General: Appendectomy, Bowel surgery, Gastric surgery, Colonoscopy HEENT: Tonsil/Adenoidectomy - Present Medications Home Medications: Ambulatory Orders Medication Instructions Recorded Confirmed ALPRAZolam [Alprazolam] 0.5 - 1 mg PO DAILY PRN 04/23/14 06/24/21 Insulin Lispro [Humalog] 25 units SQ BID 04/23/14 02/07/20 Insulin NPH Human Isophane 45 units SQ DAILY 04/23/14 02/07/20 [Humulin N] Omeprazole 20 mg PO BID 04/23/14 06/24/21 hydroCHLOROthiazide 25 mg PO BID 04/23/14 06/24/21 [Hydrochlorothiazide] methocarbamoL [Methocarbamol] 1 tab ORAL TID PRN 05/22/15 06/24/21 Tamsulosin HCl [Flomax] 0.4 mg PO DAILY 02/07/20 06/24/21 Lisinopril [Zestril] 20 mg PO BID 02/08/20 06/24/21 traMADol [Ultram] 50 mg PO TID PRN 02/08/20 06/24/21 Aspirin [Aspirin EC] 81 mg PO DAILY 06/24/21 06/24/21 Atorvastatin Calcium 40 mg PO HS 06/24/21 06/24/21 Cefpodoxime Proxetil [Vantin] 100 mg PO Q12H #20 tablet 06/24/21 Insulin Glargine [Lantus Solostar] 90 unit SQ DAILY 06/24/21 06/24/21 Phenazopyridine HCl [Pyridium] 200 mg PO TID PRN #6 tablet 06/24/21 amLODIPine [Norvasc] 5 mg PO BID 06/24/21 06/24/21 - Allergies Allergies/Adverse Reactions: Allergies Allergy/AdvReac Type Severity Reaction Status Date / Time morphine AdvReac Hallucinati Verified 06/24/21 12:36 ons - Social History Does the pt smoke?: No Smoking Status: Former smoker Does the pt drink ETOH?: Yes Does the pt have substance abuse?: No - Immunizations Immunizations are current?: Yes Immunizations: TDAP >10years/unknown - POLST Patient has POLST: No POLST Status: Full Code PD ED PE NORMAL - Vitals Vital signs reviewed: Yes - General General: Alert and oriented X 3, No acute distress - HEENT HEENT: PERRL, Moist mucous membranes - Neck Neck: Supple, no meningeal sign - Cardiac Cardiac: RRR, Strong equal pulses - Respiratory Respiratory: No respiratory distress, Clear bilaterally - Abdomen Abdomen: Soft, Non tender, Non distended - Back Back: No CVA TTP - Derm Derm: Warm and dry - Neuro Neuro: Alert and oriented X 3 - Psych Psych: Normal mood, Normal affect Results - Vitals Vitals: Vital Signs - 24 hr 06/24/21 06/24/21 12:27 13:35 Temperature 36.9 C Heart Rate 116 H 100 Respiratory 14 18 Rate Blood Pressure 155/79 H 165/76 H O2 Saturation 97 99 Oxygen O2 Source Room air - Labs Labs: Laboratory Tests 06/24/21 12:55 Urine Color YELLOW Urine Clarity CLEAR Urine pH 7.0 Ur Specific [place] 1.020 Urine Protein 100 H Urine Glucose (UA) NEGATIVE Urine Ketones NEGATIVE Urine Occult Blood LARGE H Urine Nitrite NEGATIVE Urine Bilirubin NEGATIVE Urine Urobilinogen 0.2 (NORMAL) Ur Leukocyte Esterase TRACE H Urine RBC 11-25 H Urine WBC 6-10 H Ur Squamous Epith Cells FEW Squamous Urine Bacteria Few Ur Microscopic Review INDICATED Urine Culture Comments INDICATED PD MEDICAL DECISION MAKING - ED course Complexity details: reviewed results, re-evaluated patient, considered differential, d/w patient ED course: Patient with a UTI. Will place on antibiotics for home. He is well-appearing, nontoxic. Afebrile. No hypoxia. No respiratory distress. No evidence of pyelonephritis. No back pain or flank pain. No evidence of sepsis. Patient counseled regarding signs and symptoms for which I believe and urgent re- evaluation would be necessary. Patient with good understanding of and agreement to plan and is comfortable going home at this time This document was made in part using voice recognition software. While efforts are made to proofread this document, sound alike and grammatical errors may occur. Departure - Departure Disposition: 01 Home, Self Care Clinical Impression: UTI (urinary tract infection) Qualifiers: Urinary tract infection type: acute cystitis Hematuria presence: without hematuria Qualified Code(s): N30.00 - Acute cystitis without hematuria Condition: Good Instructions: ED UTI Cystitis Male Follow-Up: Khanh Montero MD [Primary Care Provider] - Prescriptions: Phenazopyridine HCl [Pyridium] 200 mg PO TID PRN #6 tablet PRN Reason: dysuria Cefpodoxime Proxetil [Vantin] 100 mg PO Q12H #20 tablet Comments: Your prescriptions were sent to the [facility] pharmacy. Please follow-up with your doctor for further care. Take all antibiotics until gone even if you are feeling better. A urine culture was also sent and if your antibiotic needs to be changed, we will call you. Discharge Date/Time: 06/24/21 13:51
--- OUTSIDE RECORDS SUMMARY | 2021-06-24 13:19 | EXTERNAL MEDICAL SUMMARY RPT | Continuity of Care Document ---
:1945 Author Organization [facility] Address [address] [place] [address] Phone Care Team Providers Name Role Phone Hina Unavailable Unavailable Montero Unavailable Unavailable Montero Unavailable Unavailable Allergies No information. Encounters No information. Medications No information. Problems date description facility [id number] Radiculopathy, lumbosacral region [facility] [id number] Contact with and (suspected) exposure t o [address] [id number] Radiculopathy, lumbosacral region [facility] [id number] Other bursal cyst, other site [facility] [id number] Type 2 diabetes mellitus with other chuy [facility] neurological co [id number] Radiculopathy, lumbosacral region 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 Vital Signs date measurement value source 20210330 weight_standard 222.18 lb 20210330 weight_metric 100.78 kg 20210330 temperature_standard 97.8 F 20210330 temperature_metric 36.56 C 20210330 height_standard 69 in 20210330 height_metric 175.26 cm 20210330 heart_rate 78 /min 20210330 BP_systolic 142 mm[Hg] 20210330 BP_diastolic 80 mm[Hg] 20210330 BMI 32.8 kg/m2 20210330 weight_standard 222.18 lb 20210330 weight_metric 100.78 kg 20210330 temperature_standard 97.8 F 20210330 temperature_metric 36.56 C 20210330 height_standard 69 in 20210330 height_metric 175.26 cm 20210330 heart_rate 78 /min 20210330 BP_systolic 142 mm[Hg] 20210330 BP_diastolic 80 mm[Hg] 20210330 BMI 32.8 kg/m2 20210430 temperature_standard 98.8 F 20210430 temperature_metric 37.11 C 20210430 respiration_rate 20 /min 20210430 heart_rate 63 /min 20210430 BP_systolic 175 mm[Hg] 20210430 BP_diastolic 79 mm[Hg]
[2021-06-24 13:25] LABS: CLARITY,URINE CLEAR (CLEAR)
[2021-06-24 13:37] LABS: BACTERIA,URINE Few /HPF (None Seen); SQUAMOUS EPITHELIAL CELL,UR FEW Squamous (<= Few)
[2021-06-24 13:51] VITALS: BP 165/76
== END 2021-06-24 13:51 | disposition home or self-care (01) ==
LOC: ED 12:20
DX: N30.00 Acute cystitis without hematuria (principal); I10 Essential (primary) hypertension; E11.9 Type 2 diabetes mellitus without complications; Z79.4 Long term (current) use of insulin
CPT/HCPCS: 81001; 81003; 87077; 87086; 87181; 99282; 99283

== ENCOUNTER 2021-12-15 13:17 | Outpatient (CLI) | payer MEDICARE ==
[2021-12-15 14:08] VITALS: BP 138/80
--- NOTE | 2021-12-15 14:08 | SLEEP CARE CONSULTATION ---
Information from patient questionnaire entered by Gisselle James. I have reviewed and concur with the information entered by Gisselle James. This document represents the service I personally performed and the decisions made by me, Yecenia Sullivan ARNP. History of Present Illness Service Date and Time: 12/15/2021 1317 Previous diagnosis: Mild, Obstructive Sleep Apnea-Hypopnea Syndrome AHI: 12.9 (in 2014) Reason for follow up: annual (LAST SEEN ) Accompanied by: Spouse Equipment type: CPAP Equipment obtained from: [employer] (getting supplies as needed) Mask style: Nasal Mask brand: Respironics (Dreamwear) Backup mask available: Yes (old mask) Last cushion change: 1 month Prior sleep [facility]: Yes [facility] HPI additional information: LEOBARDO LEVY was diagnosed to have mild, AHI 12.9, obstructive sleep apnea-hypopnea syndrome and returned with spouse today for CPAP therapy annual follow-up. Sleep Study - Results Prior sleep studies: Yes [facility] and [facility] CPAP Compliance Data - Data Reviewed with Patient Average duration of nightly device use: 5 hrs,22 min Compliance rate %: 91 (06/18/21-12/14/21; 179/180 days used) Current pressure setting (cmH2O): 8-15 Average residual AHI: 4.0 Central apnea: 0.2 Obstructive apnea: 3.5 Compliance data discussion: He states his machine is starting to blow more air and making a loud noise. He is using big rubber bands around machine to reduce noise. Subjective Patient concerns: reports: other (machine making noise (blowing air)). denies: aerophagia, mask discomfort, air blowing in eyes, mask leak noise, condensation in mask/hose, nasal congestion, dry mouth, nose, throat, epistaxis Observed to snore while using device: No Current pressure setting perceived as: comfortable On therapy, patient: reports: sleeping better, awakening more refreshed, being more awake and alert during the day, more rested overall. denies: drowsiness while driving Initial [place] Sleepiness Scale score: 5 (in 2014) Current [place] Sleepiness Scale score: 3 (12/15/2021) Allergies and Home Medications Drug allergies reviewed: Yes (morphine) Home medication list reviewed: Yes (Atenolol 50 mg daily) Review of Systems Review of systems same as previous: Yes (no changes) Physical Exam Vital signs obtained and entered by: GISSELLE Luna MA Blood Pressure: 138/80 (left arm) Cuff size: regular Heart Rate: 73 O2 Saturation: 94 Height: 5 ft 9 in Weight: 227 lb 3.2 oz Body Mass Index: 33.5 BMI Classification: Obese Impression and Plan 1. Obstructive Sleep Apnea-Hypopnea Syndrome, mild, with good treatment compliance and good apnea control. On CPAP therapy, the patient has better sleep quality and is more rested overall. Patient states his machine is making a very loud noise and waking him up. He has been able to reduce sound with rubber bands put around machine and water chamber. This machine was last updated in 09/2019. I t is starting to make louder noise, a sign of malfunction. Thus, I will order a replacement device. A DWO prescription will be made. Compliance guidelines for new device and follow up discussed. Patient's apnea severity and rationale for treatment to reduce apnea, improve sleep quality and reduce cardiovascular and cerebrovascular events was reviewed. I also reviewed the benefit of consistent device use of CPAP for hypertension, diabetes, gastric reflux, depression and anxiety. 2. Obesity, unspecified. Currently patients BMI is 33.5. Obesity increases the risk of apnea, CPAP pressure requirements and overall health risks especially cardiovascular and diabetes. Thus patient is advised to continue to try to lose weight. * Continue auto CPAP pressure at 8-15 cmH2O * Replace malfunctioning device * Update supplies * Notify me if snoring with mask or feeling that the pressure is too much or too little * Attempt to lose weight * Call this office if any problems using CPAP * Return for follow up one month after obtaining new device, or sooner if concerns arise Counseling Topics: Spare mask, Weight loss health impact Visit Type: In Office Other Participants: Spouse/Significant Other Time Spent with Patient (minutes): 24 Provider Statement: I spent 100% of the Face to Face Visit with the patient with greater than 50% spent counseling the patient and coordination of care.
== END 2021-12-15 13:18 | disposition home or self-care (01) ==
LOC: SC 13:17
PROVIDERS: ATTEND Nurse Practitioner Family
DX: G47.33 Obstructive sleep apnea (adult) (pediatric) (principal); E66.9 Obesity, unspecified; Z68.33 Body mass index [BMI] 33.0-33.9, adult
CPT/HCPCS: 99213; G0463; 99212

== ENCOUNTER 2021-12-22 07:28 | Outpatient (CLI) | payer MEDICARE | END 2021-12-22 07:29 | disposition home or self-care (01) | LOC: LAB 07:28 | PROVIDERS: ATTEND Urology | DX: C61 Malignant neoplasm of prostate (principal) | CPT/HCPCS: 36415; 84153 ==

== ENCOUNTER 2022-08-16 13:45 | Emergency (ER) | payer MEDICARE ==
[2022-08-16 13:59] VITALS: BP 111/86
[2022-08-16 14:33] LABS: BILIRUBIN,URINE NEGATIVE (NEGATIVE); GLUCOSE, URINE (UA) NEGATIVE (NEGATIVE); KETONES,URINE (UA) NEGATIVE (NEGATIVE); LEUKOCYTE ESTERASE, URINE MODERATE (NEGATIVE); NITRITE,URINE POSITIVE (NEGATIVE); OCCULT BLOOD,URINE LARGE (NEGATIVE); PROTEIN,URINE 100 mg/dL (NEGATIVE); UROBILINOGEN,URINE 0.2 (NORMAL) E.U./dL (NORMAL)
[2022-08-16 14:37] LABS: CLARITY,URINE CLOUDY (CLEAR)
--- NOTE | 2022-08-16 14:43 | ED Physician Documentation ---
PD HPI ABD PAIN - Stated complaint Stated Complaint: MALE - Chief complaint Chief Complaint: UTI - History obtained from History obtained from: Patient (77-year-old gentleman with history of prostate cancer undergoing monitoring and diabetes presents with urinary frequency and urgency starting last night. It is not associated with flank pain, fevers but he does feel tired.) PD PAST MEDICAL HISTORY - Past Medical History Cardiovascular: Hypertension, High cholesterol Respiratory: Sleep apnea, CPAP use Neuro: Headaches Endocrine/Autoimmune: Type 2 diabetes, Other GI: GERD, Ulcers, Diverticulitis : Benign prostate hypertrophy HEENT: None Psych: Depression, Anxiety Musculoskeletal: Osteoarthritis, Chronic back pain Derm: None - Past Surgical History Past Surgical History: Yes General: Appendectomy, Bowel surgery, Gastric surgery, Colonoscopy HEENT: Tonsil/Adenoidectomy - Present Medications Home Medications: Ambulatory Orders Medication Instructions Recorded Confirmed ALPRAZolam [Alprazolam] 0.5 - 1 mg PO DAILY PRN 04/23/14 06/24/21 Insulin Lispro [Humalog] 25 units SQ BID 04/23/14 02/07/20 Insulin NPH Human Isophane 45 units SQ DAILY 04/23/14 02/07/20 [Humulin N] Omeprazole 20 mg PO BID 04/23/14 06/24/21 hydroCHLOROthiazide 25 mg PO BID 04/23/14 06/24/21 [Hydrochlorothiazide] methocarbamoL [Methocarbamol] 1 tab ORAL TID PRN 05/22/15 06/24/21 Tamsulosin HCl [Flomax] 0.4 mg PO DAILY 02/07/20 06/24/21 Lisinopril [Zestril] 20 mg PO BID 02/08/20 06/24/21 traMADol [Ultram] 50 mg PO TID PRN 02/08/20 06/24/21 Aspirin [Aspirin EC] 81 mg PO DAILY 06/24/21 06/24/21 Atorvastatin Calcium 40 mg PO HS 06/24/21 06/24/21 Cefpodoxime Proxetil [Vantin] 100 mg PO Q12H #20 tablet 06/24/21 Insulin Glargine [Lantus Solostar] 90 unit SQ DAILY 06/24/21 06/24/21 Phenazopyridine HCl [Pyridium] 200 mg PO TID PRN #6 tablet 06/24/21 amLODIPine [Norvasc] 5 mg PO BID 06/24/21 06/24/21 Ciprofloxacin HCl [Cipro] 250 mg PO BID #10 tablet 08/16/22 - Allergies Allergies/Adverse Reactions: Allergies Allergy/AdvReac Type Severity Reaction Status Date / Time morphine AdvReac Hallucinati Verified 08/16/22 13:52 ons - Social History Does the pt smoke?: No Smoking Status: Former smoker Does the pt drink ETOH?: Yes Does the pt have substance abuse?: No - Immunizations Immunizations are current?: Yes Immunizations: TDAP >10years/unknown - POLST Patient has POLST: No POLST Status: Full Code PD ED PE NORMAL - Vitals Vital signs reviewed: Yes - General General: Alert and oriented X 3, No acute distress - Abdomen Abdomen: Normal bowel sounds, Soft, Non tender - Neuro Neuro: Alert and oriented X 3, Normal speech Results - Vitals Vitals: Vital Signs - 24 hr 08/16/22 13:52 Temperature 36.5 C Heart Rate 84 Respiratory 16 Rate Blood Pressure 111/86 H O2 Saturation 95 Oxygen O2 Source Room air - Labs Labs: Laboratory Tests 08/16/22 14:00 Urine Color YELLOW Urine Clarity CLOUDY Urine pH 7.0 Ur Specific [place] 1.015 Urine Protein 100 H Urine Glucose (UA) NEGATIVE Urine Ketones NEGATIVE Urine Occult Blood LARGE H Urine Nitrite POSITIVE H Urine Bilirubin NEGATIVE Urine Urobilinogen 0.2 (NORMAL) Ur Leukocyte Esterase MODERATE H Ur Microscopic Review INDICATED Urine Culture Comments Not Reportable PD Medical Decision Making - ED course ED course: 77-year-old gentleman with history of prostate cancer presents with symptoms and urinalysis consistent with cystitis. No evidence of systemic illness. Postvoid bladder scan was 180. Departure - Departure Disposition: 01 Home, Self Care Clinical Impression: Cystitis Condition: Good Record reviewed to determine appropriate education?: Yes Instructions: ED UTI Cystitis Male Prescriptions: Ciprofloxacin HCl [Cipro] 250 mg PO BID #10 tablet Comments: We will culture your urine, the results should be done in 48-72 hours. If an antibiotic change is necessary we will call you. Return if worse in the meantime, especially if you develop increasing flank pain, fevers, or cannot keep down the medication. Make sure your urologist is aware of this issue and that your postvoid residual bladder scan was 180 mL.
[2022-08-16 14:49] LABS: RBC,URINE TNTC /HPF (0-5); SQUAMOUS EPITHELIAL CELL,UR NONE SEEN (<= Few); WBC,URINE >25 /HPF (0-3)
[2022-08-16 14:50] LABS: BACTERIA,URINE Moderate /HPF (None Seen)
[2022-08-16] MEDS: CIPROFLOXACIN 250 MG TABLET PO STA (15:00)
== END 2022-08-16 15:02 | disposition home or self-care (01) ==
LOC: ED 13:45
DX: N30.90 Cystitis, unspecified without hematuria (principal); I10 Essential (primary) hypertension; Z79.4 Long term (current) use of insulin; Z79.899 Other long term (current) drug therapy; Z79.82 Long term (current) use of aspirin; Z87.891 Personal history of nicotine dependence
CPT/HCPCS: 51798; 81001; 81003; 87077; 87086; 87181; 99283

== ENCOUNTER 2022-10-28 11:52 | Outpatient (CLI) | payer MEDICARE | END 2022-10-28 11:53 | disposition home or self-care (01) | LOC: LAB 11:52 | PROVIDERS: ATTEND Urology | DX: C61 Malignant neoplasm of prostate (principal) | CPT/HCPCS: 36415; 84153 ==

== ENCOUNTER 2022-12-28 07:28 | Day surgery (SDC) | payer MEDICARE ==
[~2022-12-28 07:28] MED LIST: PROPOFOL 500 MG/50 ML 500 MG/50 ML VIAL ONE; ROCURONIUM 50 MG/5 ML VIAL ONE
[2022-12-28] MEDS ORDERED: ceFAZolin 2 GM VIAL ONE (07:33)
[2022-12-28] MEDS ORDERED: LACTATED RINGERS 1,000 ML IV ONE ×2 (07:37→10:19)
[2022-12-28] MEDS ORDERED: BUPIVACAINE 0.5% PF 10 ML VIAL ONE (08:08)
[2022-12-28] MEDS ORDERED: fentaNYL 100 MCG/2 ML VIAL IVP PRN (08:16)
[2022-12-28] MEDS ORDERED: ATROPINE ABBOJECT 1 MG/10 ML SYRINGE IVP PRN (08:16)
[2022-12-28] MEDS ORDERED: NALOXONE 0.4 MG/ML VIAL IVP PRN (08:16)
[2022-12-28] MEDS ORDERED: ePHEDrine 50 MG/ML VIAL IVP PRN (08:16)
[2022-12-28] MEDS ORDERED: HYDROmorphone 0.5 MG/0.5 ML SYRINGE IVP PRN ×2 (08:16→11:03)
[2022-12-28] MEDS ORDERED: ONDANSETRON 4 MG/2 ML VIAL IVP PRN ×2 (08:16→11:03)
--- NOTE | 2022-12-28 08:16 | ANESTHESIA ---
Pre-Anesthesia VS, & Labs - Diagnosis incisional hernia - Procedure incisional hernia repair Vital Signs: Temp Pulse Resp BP Pulse Ox O2 Flow Rate 36.8 C 52 L 12 169/74 H 96 12/28/22 07:45 12/28/22 07:45 12/28/22 07:45 12/28/22 07:45 12/28/22 07:45 Height: 5 ft 9 in Weight (kg): 102 kg Body Mass Index: 33.2 BMI Classification: Obese - NPO >8 hours - Lab Results Current Lab Results: Laboratory Tests 12/28/22 07:50: POC Whole Bld Glucose 169 H Lab results reviewed: Yes Home Medications and Allergies Home Medications: Ambulatory Orders Albuterol Sulf [Ventolin Hfa Inhaler] 1 - 2 puffs INH Q4HR PRN 12/20/22 Atenolol [Tenormin] 50 mg PO DAILY 12/20/22 Oxycodone HCl/Acetaminophen [Oxycodone-Acetaminophen 5-325] 1 each PO TID 12/20/22 ALPRAZolam [Alprazolam] 1 mg PO QPM 04/23/14 Insulin Lispro [Humalog] 10 units SQ QDDINNER 04/23/14 Omeprazole 20 mg PO BID 04/23/14 hydroCHLOROthiazide [Hydrochlorothiazide] 25 mg PO BID 04/23/14 methocarbamoL [Methocarbamol] 1 tab ORAL TID PRN 05/22/15 Tamsulosin HCl [Flomax] 0.4 mg PO BID 02/07/20 Lisinopril [Zestril] 20 mg PO BID 02/08/20 Atorvastatin Calcium 40 mg PO HS 06/24/21 Insulin Glargine [Lantus Solostar] 100 unit SQ DAILY 06/24/21 amLODIPine [Norvasc] 5 mg PO BID 06/24/21 Albuterol Sulf [Ventolin Hfa Inhaler] 1 - 2 puffs INH Q4HR PRN 12/20/22 Atenolol [Tenormin] 50 mg PO DAILY 12/20/22 Oxycodone HCl/Acetaminophen [Oxycodone-Acetaminophen 5-325] 1 each PO TID 12/20/22 Allergies/Adverse Reactions: Allergies Allergy/AdvReac Type Severity Reaction Status Date / Time morphine AdvReac Hallucinations, Verified 12/20/22 11:40 paranoid Anes History & Medical History - Anesthetic History Anesthesia Complications: reports: No previous complications Family history of Anesthesia Complications: Denies Family history of Malignant Hyperthermia: Denies - Medical History Cardiovascular: reports: Hypertension, High cholesterol Pulmonary: reports: Asthma, Sleep apnea, CPAP use Gastrointestinal: reports: GERD (w/c), Ulcers, Diverticulitis Urinary: reports: Benign prostate hypertrophy, Other Neuro: reports: Headaches Musculoskeletal: reports: Osteoarthritis, Chronic back pain Endocrine/Autoimmune: reports: Type 2 diabetes Blood Disorders: reports: None Skin: reports: Other Smoking Status: Former smoker Psychosocial: reports: No issues indicated - Surgical History General: reports: Appendectomy, Bowel surgery, Gastric surgery, Colonoscopy, EGD Eyes Ears Nose Throat (EENT): reports: Cataracts, Tonsil/Adenoidectomy Exam General: Alert, Oriented x3, Cooperative Dental: WNL Mouth Openin Fingerbreadth Neck Mobility: Normal Mallampati classification: II Thyromental Distance: 4-6 cm Respiratory: Lungs clear Cardiovascular: Regular rate Plan Anesthesia Type: General Consent for Procedure(s) Verified and Reviewed: Yes Code Status: Attempt Resuscitation ASA classification: 3-Severe systemic disease Is this case an emergency?: No
[2022-12-28] MEDS ORDERED: fentaNYL 100 MCG/2 ML VIAL ONE (08:28)
[2022-12-28] MEDS ORDERED: LACTATED RINGERS 1,000 ML IV SCH (09:00)
[2022-12-28] MEDS ORDERED: BUPIVACAINE 0.5%-EPI 1:200000 PF 30 ML VIAL ONE (09:14)
[2022-12-28] MEDS ORDERED: BUPIVACAINE 0.5%-EPI 1:200000 PF 30 ML VIAL SUBQ ONE (09:36)
[2022-12-28] MEDS ORDERED: ePHEDrine 50 MG/ML VIAL IVP ONE (09:51)
[2022-12-28] MEDS ORDERED: LIDOCAINE-PF 2% 10 ML AMP SUBQ ONE (10:03)
[2022-12-28] MEDS ORDERED: SUGAMMADEX 200 MG/2 ML VIAL IVP ONE (10:03)
--- NOTE | 2022-12-28 10:20 | OPERATIVE REPORT ---
Operative Report - General Procedure Date: 12/28/22 Planned Procedure: Incisional herniorrhaphy Pre-Op Diagnosis: Incisional hernia Procedure Performed: Incisional herniorrhaphy with mesh Post Op Diagnosis: Incisional hernia - Procedure Note Primary Surgeon: Elkin Cole MD Anesthesia Provider: Alfred Russo CRNA Anesthesia Technique: Local IV Fluids (mL): 1,000 Estimated Blood Loss (mL): 2 Drain/Tube Type: Other (None.) Indications: Symptomatic incisional hernia Complications: None. - Other Other Information/Narrative: After verbal and written informed consent was obtained detailing the operation, the alternatives the operation including no operation, risks of infection, bleeding requiring transfusion with its risks, nerve injury, and and after I met with the patient confirming the surgery and the site of surgery, the patient was brought to the operative suite and placed supine on the operating table. Great care was taken to avoid pressure points to prevent pressure necrosis or nerve injury. Monitoring devices were applied along with TEDs and pneumatic compression stockings (to prevent DVT). The patient received preoperative antibiotics for surgical prophylaxis. Alfred Russo CRNA sedated and anesthetized the patient for the entire procedure. The patient was prepped and draped in the usual sterile manner. A "time in" then confirmed that the patient was identified with 3 identifiers (name, date, and medical record number), the history and physical was updated and in the chart, the signed consent confirming the procedure was in the chart, the patient was in the correct position, the aforementioned prophylactic measures were in place or given, we had the correct personnel and equipment to complete the procedure and that anesthesia and the surgical team were given an opportunity to express any concerns. With the agreement of everyone in the room we proceeded with the operation. I incised the skin overlying the hernia tracing the previous incision and dissection was carried out down to the hernia sac using a combination of blunt dissection as well as Bovie electrocautery. Hemostasis was obtained using Bovie electrocautery. The fascial defect measured [address] hernia patch (reference #[id number], lot#[id number], use by 2023-04-13) was obtained and deployed into the hernia defect. The mesh was secured to the fascia using 0 PDS and the straps superiorly and inferiorly. Laterally a 0 PDS U stitch was placed to further secure the mesh to the fascia. Examination showed the mesh to be in good position without defect that might allow recurrence. The local anesthesia was injected at the fascial and skin level. The subcutaneous tissues were approximated using interrupted 2-0 Vicryl suture. The skin incision was approximated with 4-0 Monocryl in a subcuticular fashion. The skin was cleaned of its prep and Dermabond was applied. At this point a timeout was performed that confirmed that all counts were correct x2, the procedure that was performed, the blood loss, the IV fluids administered, the patient's condition, and any concerns of the operating team had. Having tolerated the procedure well, the patient was taken recovery room in good and stable condition. The plan is for outpatient discharge when the patient is adequately recovered. CPT 99114 (less than 3 cm - reducible) This document was created in part using voice recognition technology. Because of the inherent limitations of the system, occasional same sounding word substitutions and grammatical errors do occur and persist despite proofreading. Please read this document for content.
[2022-12-28] MEDS ORDERED: HYDROcod/ACETAM 5/325 MG TABLET PO PRN (11:03)
[2022-12-28 11:27] VITALS: O2SAT 94
[2022-12-28 11:45] VITALS: BP 180/66
--- NOTE | 2022-12-28 11:53 | ANESTHESIA POST OP EVALUATION ---
Anesthesia Post Eval - Post Anesthesia Eval Vitals: Last Vital Signs Temp 36.4 C L 12/28/22 11:30 Pulse 62 12/28/22 11:30 Resp 16 12/28/22 11:30 BP 180/66 H 12/28/22 11:30 Pulse Ox 94 12/28/22 11:30 O2 Flow Rate CV Function Including HR & BP: Stable Pain Control: Satisfactory Nausea & Vomiting: Negative Mental Status: Baseline Respiratory Status: Airway Patent Hydration Status: Satisfactory Anesthesia Complications: None
== END 2022-12-28 07:29 | disposition home or self-care (01) ==
LOC: SDS 07:28
PROVIDERS: ATTEND Surgery
DX: K43.2 Incisional hernia without obstruction or gangrene (principal); E11.9 Type 2 diabetes mellitus without complications; J44.9 Chronic obstructive pulmonary disease, unspecified; E66.9 Obesity, unspecified; Z79.4 Long term (current) use of insulin; Z68.33 Body mass index [BMI] 33.0-33.9, adult
CPT/HCPCS: 49591; J7120

== ENCOUNTER 2023-05-10 15:37 | Outpatient (CLI) | payer MEDICARE ==
[2023-05-10 16:48] LABS: ESTIMATED AVERAGE GLUCOSE 174 mg/dL (70-100); HEMOGLOBIN A1c% 7.7 % (4.27-6.07)
== END 2023-05-10 15:38 | disposition home or self-care (01) ==
LOC: LAB 15:37
PROVIDERS: ATTEND Urology
DX: C61 Malignant neoplasm of prostate (principal); E11.65 Type 2 diabetes mellitus with hyperglycemia
CPT/HCPCS: 36415; 83036; 84153

== ENCOUNTER 2023-08-24 13:10 | Outpatient (CLI) | payer MEDICARE ==
--- NOTE | 2023-08-24 17:58 | CT Report ---
PROCEDURE: Lumbar Spine WO INDICATIONS: SPINAL STENOSIS TECHNIQUE: Noncontrast 3 mm thick sections acquired from the T12 level to the sacrum. Sagittal and coronal refo rmats were constructed. For radiation dose reduction, the following was used: automated exposure co ntrol, adjustment of mA and/or kV according to patient size. COMPARISON: None. FINDINGS: Image quality: Excellent. Bones: There is trace retrolisthesis of L3 on L4. Posterior fusion with intervertebral spacers is pr esent from L4 through S1. Hardware is intact without evidence of hardware fracture or periprosthetic lucency to suggest loosening. There is no visualized osseous fracture or dislocation. No suspicious o sseous lesions. Small anterior osteophytes are present most prominent at L4. Disc bulges are present at L2-3, L3-4. Minimal spinal stenosis is present at L2-3, slightly progressi ve, moderate spinal stenosis L3-4, progressive. No visualized spinal stenosis at L4-5 and L5-S1, impr ze. There is mild bilateral foraminal narrowing, L4-5, moderate left, mild right L5-S1. Multilevel facet and ligamentum flavum hypertrophy are present. Soft tissues: No retroperitoneal masses or hematomas. Visualized aorta is normal in caliber. IMPRESSION: Posterior fusion with improved appearance of previous spinal stenosis at L4-5 and L5-S1. Multilevel foraminal narrowing remaining most severe at L4-5, unchanged. Reviewed by: Amalia Gibbs MD on 08/24/2023 5:56 PM PDT Approved by: Amalia Gibbs MD on 08/24/2023 5:56 PM PDT Station ID: [id number]
== END 2023-08-24 13:11 | disposition home or self-care (01) ==
LOC: DI 13:10
PROVIDERS: ATTEND Orthopaedic Surgery Orthopaedic Surgery of the Spine
DX: M48.062 Spinal stenosis, lumbar region with neurogenic claudication (principal); M48.07 Spinal stenosis, lumbosacral region; Z98.1 Arthrodesis status